=== PATIENT | male | born 1955 | race Caucasian/White ===

== ENCOUNTER 2017-10-07 19:25 | Outpatient (REF) | payer MEDICARE, SELFPAY ==
[2017-10-07 21:43] LABS: FREE T4 0.89 ng/dL (0.76-1.46); TSH 3.71 uIU/mL (0.358-3.74)
[2017-10-08 16:38] LABS: T3, Total 138 ng/dl (97-169)
== END 2017-10-07 19:26 ==
LOC: NCHCN 19:25
PROVIDERS: PCP Nurse Practitioner Family; Visit Provider Physician Assistant Medical
DX: E03.9 Hypothyroidism, unspecified (principal)
CPT/HCPCS: 84439; 84443; 84480

== ENCOUNTER 2017-11-12 15:28 | Outpatient (REF) | payer MEDICARE, SELFPAY ==
[2017-11-12 21:03] LABS: TSH (W/Ref FT4) 2.31 uIU/mL (0.358-3.74)
== END 2017-11-12 15:48 ==
LOC: NCHCN 15:28
PROVIDERS: PCP Nurse Practitioner Family; Referring Provider Physician Assistant Medical; Visit Provider Physician Assistant Medical
DX: E03.9 Hypothyroidism, unspecified (principal)
CPT/HCPCS: 84443

== ENCOUNTER 2018-03-02 09:35 | Outpatient (REF) | payer MEDICARE, SELFPAY ==
--- NOTE | 2018-03-02 08:56 | SKI_PTH ---
PATIENT: Nolberto House LOC: [facility] U#:[id number] AGE/SX: 62/M ROOM: RE03/02/[address]: Tyrone Michael : 1955 BED: DIS: 03/02/2018 SPEC #: [id number] RECD: 03/04/18 12:26 STATUS: MARILU RELesley #: [id number] ALLYSSA: 03/02/18 08:[address]: Tyrone Michael DEPT: Surgical Specimen RECD BY: Dena Hagen ENTERED: 03/04/18 12:26 SP TYPE: TONIO GALEAS DR: Stephanie Lopez Tissues: 1 - SKIN BIOPSY(SHAVE/PUNCH) Procedures: SPECIAL STAIN 2 SKIN LEVEL 4 Comments: [id number]
== END 2018-03-02 09:55 ==
LOC: NCHCN 09:35
PROVIDERS: PCP Nurse Practitioner Family; Visit Provider Specialist/Technologist Athletic Trainer
DX: L93.2 Other local lupus erythematosus (principal)
CPT/HCPCS: 88305; 88313

== ENCOUNTER 2018-03-12 22:34 | Outpatient (REF) | payer MEDICARE, SELFPAY ==
[2018-03-12 23:38] LABS: ESR 6 MM/HR (1-20)
[2018-03-14 15:07] LABS: Myeloperoxidase Ab IgG <0.2 U; Proteinase 3 Ab (PR3) <0.2 U
[2018-03-16 10:06] LABS: Cyclic Citrullinated Peptide <2.5 U/mL (<5.0)
[2018-03-16 10:47] LABS: Rheumatoid Factor <8 IU/mL (<12.5)
[2018-03-16 11:16] LABS: Lyme Ab w Rflx to Lyme Confirm Negative
[2018-03-16 14:11] LABS: ANA Interpretation Positive (NEGAT); ANA Titer Pattern 1:160 Speckled
[2018-03-16 21:38] LABS: Anaplasma phagocytophilum Negative (Negative); B. miyamotoi PCR Negative (Negative); Babesia divergens/MO-1 Negative (Negative); Babesia duncani Negative (Negative); Babesia microti Negative (Negative); Ehrlichia chaffeensis Negative (Negative); Ehrlichia ewingii/canis Negative (Negative); Ehrlichia muris eauclairensis Negative (Negative)
== END 2018-03-12 22:54 ==
LOC: NCHCN 22:34
PROVIDERS: PCP Nurse Practitioner Family; Visit Provider Specialist/Technologist Athletic Trainer
DX: M25.50 Pain in unspecified joint (principal); Z82.61 Family history of arthritis
CPT/HCPCS: 85652; 86200; 83516; 86038; 86140; 86431; 86618; 87798

== ENCOUNTER → 2018-04-01 08:02 | Outpatient (BNVA) | payer MEDICARE, SELFPAY | PROVIDERS: PCP Nurse Practitioner Family; Referring Provider Physician Assistant Medical; Visit Provider Psychiatry & Neurology Neurology | DX: G56.03 Carpal tunnel syndrome, bilateral upper limbs (principal); G56.23 Lesion of ulnar nerve, bilateral upper limbs | CPT/HCPCS: 95911; 99214 ==

== ENCOUNTER 2018-05-11 01:16 | Outpatient (CLI) | payer MEDICARE, SELFPAY ==
--- NOTE | 2018-05-11 08:40 | DI.MRI_ITS ---
SYMPTOM/DIAGNOSIS: ATYPICAL HEADACHE, R51 BRAIN MRI: Comparison is made with 01/31/10. T 2 sagittal, T 1, T 2, FLAIR, diffusion and gradient echo axial sequences were performed. No intracranial hemorrhage, mass or infarct is seen. The ventricles are normal in size. There are a few tiny scattered areas of high signal in the white matter, likely reflecting small vessel disease. The vascular flow voids appear intact. The sinuses and mastoid air cells appear clear. The orbits and pituitary are unremarkable. IMPRESSION: Minimal white matter changes likely reflecting small vessel disease. No acute abnormality.
== END 2018-05-11 01:36 ==
PROVIDERS: PCP Physician Assistant Medical; Visit Provider Specialist/Technologist Athletic Trainer
DX: R51 Headache (principal); R90.82 White matter disease, unspecified
CPT/HCPCS: 70551

== ENCOUNTER 2018-06-08 02:30 | Outpatient (CLI) | payer MEDICARE, SELFPAY ==
--- NOTE | 2018-06-08 | PFT_ITS ---
PULMONARY FUNCTION TEST REPORT Patient - Nolberto House 55 DATE OF SERVICE June 08, 2018 REQUESTING PROVIDER Darlene Miranda-PEYMAN Dunbar INTERPRETATION OF STUDY Spirometry shows no evidence of obstructive airways disease. No bronchodilator response. LUNG VOLUMES - Lung volumes show no evidence of restriction. DIFFUSION CAPACITY- Elevated. AIRWAY RESISTANCE - Normal. IMPRESSION No evidence of obstructive or restrictive lung disease. However, isolated elevated diffusion capacity can be seen in asthma. Therefore if the diagnosis of asthma is in question proceeding with Methacholine challenge testing may prove to be useful. Clinical correlation recommended. Tran Lagos M.D. Danae DD 06/10/2018 DT 06/11/2018
[2018-06-08] MEDS: Inhaler, Assist Device 1 EACH MC (08:54)
[2018-06-08] MEDS: Albuterol HFA 18 GM 200 PUFF INH IH (08:54)
== END 2018-06-08 02:50 ==
PROVIDERS: PCP Physician Assistant Medical; Visit Provider Physician Assistant Medical
DX: R06.09 Other forms of dyspnea (principal); F17.210 Nicotine dependence, cigarettes, uncomplicated
CPT/HCPCS: 94060; 94150; 94726; 94729

== ENCOUNTER → 2018-07-02 08:53 | Outpatient (BNVA) | payer MEDICARE, SELFPAY | PROVIDERS: PCP Physician Assistant Medical; Referring Provider Physician Assistant Medical; Visit Provider Physical Therapy Assistant | DX: Z12.11 Encounter for screening for malignant neoplasm of colon (principal); Z86.010 Personal history of colon polyps; K21.9 Gastro-esophageal reflux disease without esophagitis | CPT/HCPCS: 99214 ==

== ENCOUNTER 2018-07-24 06:08 | Day surgery (SDC) | payer MEDICARE, SELFPAY ==
[2018-07-24 06:25] VITALS: BP 136/88; PULSE 61; RESP 19; TEMP 35.9; O2SAT 97
[2018-07-24] MEDS: Lactated Ringers 1,000 ML 80 ML IV (06:53)
--- NOTE | 2018-07-24 07:35 | STOM_PTH ---
PATIENT: Nolberto House LOC: [facility] U#:[id number] AGE/SX: 62/M ROOM: RE07/24/[address]: Amber Black : 1955 BED: DIS: 07/24/2018 SPEC #: [id number] RECD: 07/24/18 12:43 STATUS: MARILU RE #: [id number] ALLYSSA: 07/24/18 07:[address]: Amber Black DEPT: Surgical Specimen RECD BY: Dena Hagen ENTERED: 07/24/18 12:45 SP TYPE: STOMACH OTHR DR: Darlene Dunbar Tissues: 1 - BIOPSY BOWEL 2 - STOMACH BIOPSY 3 - STOMACH BIOPSY 4 - ESOPHAGUS BIOPSY 5 - ESOPHAGUS BIOPSY 6 - BIOPSY BOWEL Procedures: GROSS AND MICRO LEVEL 4 IMMUNOPEROXIDASE STAIN Comments: [id number]
--- NOTE | 2018-07-24 08:14 | W.PM.DSUDISC ---
Discharge Plan Disposition Patient Disposition: HOME Condition: Good Discharge Details Reason For Visit: egd and CE Attending Provider: Amber Black Primary Care Provider: Darlene Dunbar Home Meds and New Rx's Prescriptions: New sucralfate [Carafate] 1 gram tablet 1 gm PO ONCE Qty: 30 RF: 12 Continued clotrimazole-betamethasone 1-0.05 % lotion 1 applic TP BID RF: 0 Flovent HFA 110 mcg/actuation HFA aerosol inhaler 1 puff IH BID RF: 0 diclofenac potassium 50 mg tablet 50 mg PO DAILY PRNRF: 0 omeprazole 40 mg capsule,delayed release(DR/EC) 40 mg PO DAILY RF: 0 albuterol sulfate [ProAir HFA] 8.5 GM HFA aerosol inhaler 2 puff Inhalation PRN PRNRF: 0 Discontinued polyethylene glycol 3350 17 gram/dose powder 238 g PO ONCE Qty: 238 RF: 0 bisacodyl [Dulcolax (bisacodyl)] 5 mg tablet,delayed release (DR/EC) 5 mg PO ONCE Qty: 4 RF: 0 Discharge Instructions Instructions: High Fiber Diet (GEN) Additional Instructions: Findings:gastritis/esophagitis sm polyp in colon Follow up: repeat 5-10 yrs depending on results of pathology -will send a letter in 2-3 wks w/ results of the polyp -take a carafate w/ the diclofenac Please call if you develop: fevers >101.5 Nausea or Vomiting Abdominal pain that is not transient DAY SURGERY UNIT POST COLONOSCOPY INSTRUCTIONS 1. Because there will be medication in your system for the next 24 hours, you may feel a little sleepy. Your coordination will be affected. Therefore: a. Do not drive or operate dangerous equipment for 24 hours. b. Do not drink alcohol beverages for 24 hours (not even beer). c. Plan to go home and rest for the day. 2. Generally there are no restrictions on your activity after a day or so has gone by, but you may feel a bit fatigued for a few days. 3 After you arrive home you may have a light meal and return to a normal diet as you can tolerate it without feeling sick to your stomach. 4. After surgery, you may feel pain or discomfort. This should be only transient, but if it persists please contact your doctor. 5. If there are any questions regarding the findings of your procedure, please feel free to contact your doctor. 6. If you are unable to contact your doctor with a problem, contact the hospital at [phone]. 7. Continue all your regular medications unless directed otherwise. I understand the above instructions and have no questions. Signature of Patient or Responsible Adult Escort Date/Time Name of Responsible Adult Escort Signature of Nurse Date/Time Activity:: no heavy lifting or strenuous activity x 24 hrs Diet:: sm lt meals Discharge Orders Discharge Orders: Discharge Order (Routine); Ordered 07/24/18 Ordered By: Amber Black DS: Diagnosis Discharge Diagnosis (1) GERD without esophagitis: Status: Acute (2) Colon polyp: Status: Acute (3) Gastritis: Status: Acute
--- NOTE | 2018-07-24 08:27 | ENDO_ITS ---
Date of service: 07/24/18 Time of Service: 08:23 Endoscopy Report DATE OF PROCEDURE: 07/24/18 PRE-OP DIAGNOSIS: non cardiac chest pain and CRC screen POST-OP DIAGNOSIS: other (gastritis/esophagitis/gerd and sm colon polyp ) PROCEDURE: EGD w/ bx and CE w/ polyp remover- cold biter SURGEON: Amber Black ANESTHESIA: GETA ESTIMATED BLOOD LOSS: 2 PATHOLOGY: other COMPLICATIONS: None DISPOSITION: PACU PREP: Miralax COLONOSCOPY RETRACTION TIME: 10 mins PROCEDURE DESCRIPTION: After informed consent was obtained the patient was take to the procedure room and placed in a supine position. Monitors were applied and a time out was done. The patients name, date of , procedure type, allergies to medications and metal in their body was reviewed. A bite block was placed and the patient was sedated. Once sedated and comfortable the gastroscope was advanced through the oropharynx which was grossly normal into the esophagus. The proximal and mid-esophagus were nl. In the distal esophagus there was mild irritation. The scope was advanced into the stomach and through the pylorus into the 3rd portion of the duodenum. The duodenum was noted to be nl. Biopsies were done . The scope was retracted back into the stomach and biopsies were done to rule out H. pylori. There were no ulcers/mild to moderate gastritis. no bile reflux. The scope was retroflexed. The cardia and fundus were noted to be normal. There no hiatal hernia noted. The scope was retracted back into the esophagus and biopsies were done of the GE junction to rule out Harrington's. The Z line was regular. The GE junction was at 39 cm. Scopes where than exchanged After informed consent was obtained the patient was taken to the procedure room and placed in a left decubitous position. Monitors were applied and a time out was done. The patients name, date of , procedure, allergies to medications and metal in their body was reviewed. The patient was then sedated. Once sedated and comfortable a rectal exam was done. External exam was normal. Internal exam revealed a normal sphincter tone and no palpable masses. The prostate not palpable . The scope was then introduced and retroflexed. no internal hemorrhoids were identified. The scope was then advanced to the cecum without difficulty. The TI and appendiceal orifice were identified. The prep was adequate. The scope was then slowly retracted over 10 minutes back into the rectum. Polyps were removed at 30cm/descending colon x2 w/ a cold biter. They were removed w/ a cold biter. All specimen was retrieved and no bleeding was noted. No diverticula or AVM's. The muscosa and vasculature that was visualized was nl in appearance. The scope was removed and the patient was woken up and taken back to Same day surgery in stable condition. The patient tolerated the procedure well and there were no immediate complications. Follow up: The patient should follow up in 5-10 yrs- path pd, unless they devel op changes in bowel habits or other new gastrointestinal complaints.
[2018-07-24 08:52] VITALS: BP 117/84; PULSE 54; RESP 16; TEMP 36.6; O2SAT 94
--- NOTE | 2018-07-24 09:21 | W.PM.DS.N ---
DS: Diagnosis Discharge Diagnosis (1) GERD without esophagitis: Status: Acute (2) Colon polyp: Status: Acute (3) Gastritis: Status: Acute Discharge Plan Disposition Patient Disposition: HOME Condition: Good Discharge Details Reason For Visit: egd and CE Attending Provider: Amber Black Primary Care Provider: Darlene Dunbar Home Meds and New Rx's Prescriptions: New sucralfate [Carafate] 1 gram tablet 1 gm PO ONCE Qty: 30 RF: 12 Chantix Starting Month Box 0.5 mg (11)- 1 mg (42) tablets,dose pack See Rx Instructions .ROUTE .COMPLEX Qty: 53 RF: 0 Continued clotrimazole-betamethasone 1-0.05 % lotion 1 applic TP BID RF: 0 Flovent HFA 110 mcg/actuation HFA aerosol inhaler 1 puff IH BID RF: 0 diclofenac potassium 50 mg tablet 50 mg PO DAILY PRNRF: 0 omeprazole 40 mg capsule,delayed release(DR/EC) 40 mg PO DAILY RF: 0 albuterol sulfate [ProAir HFA] 8.5 GM HFA aerosol inhaler 2 puff Inhalation PRN PRNRF: 0 Discontinued polyethylene glycol 3350 17 gram/dose powder 238 g PO ONCE Qty: 238 RF: 0 bisacodyl [Dulcolax (bisacodyl)] 5 mg tablet,delayed release (DR/EC) 5 mg PO ONCE Qty: 4 RF: 0 Discharge Instructions Instructions: High Fiber Diet (GEN) Additional Instructions: Findings:gastritis/esophagitis sm polyp in colon Follow up: repeat 5-10 yrs depending on results of pathology -will send a letter in 2-3 wks w/ results of the polyp -take a carafate w/ the diclofenac Please call if you develop: fevers >101.5 Nausea or Vomiting Abdominal pain that is not transient DAY SURGERY UNIT POST COLONOSCOPY INSTRUCTIONS 1. Because there will be medication in your system for the next 24 hours, you may feel a little sleepy. Your coordination will be affected. Therefore: a. Do not drive or operate dangerous equipment for 24 hours. b. Do not drink alcohol beverages for 24 hours (not even beer). c. Plan to go home and rest for the day. 2. Generally there are no restrictions on your activity after a day or so has gone by, but you may feel a bit fatigued for a few days. 3 After you arrive home you may have a light meal and return to a normal diet as you can tolerate it without feeling sick to your stomach. 4. After surgery, you may feel pain or discomfort. This should be only transient, but if it persists please contact your doctor. 5. If there are any questions regarding the findings of your procedure, please feel free to contact your doctor. 6. If you are unable to contact your doctor with a problem, contact the hospital at [phone]. 7. Continue all your regular medications unless directed otherwise. I understand the above instructions and have no questions. Signature of Patient or Responsible Adult Escort Date/Time Name of Responsible Adult Escort Signature of Nurse Date/Time Stand Alone Forms: Lopez Davila (DSU) Activity:: no heavy lifting or strenuous activity x 24 hrs Diet:: sm lt meals Discharge Orders Discharge Orders: Discharge Order (Routine); Ordered 07/24/18 Ordered By: Amber Black Discharge Data Discharge Date/Time-TO BE ENTERED AT DEPARTURE: 07/24/18 09:10 Discharge Comment: DC'D HOME WITH , STABLE. DS: Data Vitals/I&O Vitals and I&O: Vital Signs Temperature 36.6 C 07/24/18 08:52 Pulse 54 L 07/24/18 08:52 Pulse Rhythm Regular 07/24/18 06:25 Respiratory Rate 16 07/24/18 08:52 Respiratory Depth Normal 07/24/18 06:25 Blood Pressure 117/84 07/24/18 08:52 Pulse Oximetry 94 L 07/24/18 08:52 Oxygen Delivery Method Room Air 07/24/18 08:52 Oxygen Flow Rate 0 07/24/18 06:25 Pain Level 0 07/24/18 08:52 Intake & Output 07/23/18 07/23/18 07/24/18 11:59 23:59 11:59 Intake Total 808 / 808 Balance 808 / 808 Weight 122.6 kg Intake: IV 688 / 688 Oral 120 / 120 Other: Emesis Description None PFSH Medical History Gastritis (Acute) Colon polyp (Acute) GERD without esophagitis (Acute) SHARITA positive (Acute) Abdominal pain (Acute) Atypical cluster headache (Acute) Chest pain (Acute) Elevated lipase (Acute) Flank pain (Acute) History of lupus (Acute) Shortness of breath (Acute) Urinary hesitancy (Acute) Colitis (Chronic) Depression (Chronic) GERD (gastroesophageal reflux disease) (Chronic) Hypothyroidism (Chronic) Lumbar spinal stenosis (Chronic) Neuropathy (Chronic) KELLY (obstructive sleep apnea) (Chronic) Obesity (Chronic) Polyarthralgia (Chronic) Sleep apnea (Chronic) Syncope (Chronic) Tobacco use disorder (Chronic) Urinary incontinence (Chronic) Hyperplastic colonic polyp (Resolved) Surgical History History of ankle surgery (Acute) Hx of hand surgery (Acute) History of colonoscopy (Chronic) Social History Smoking/Tobacco Use Status: Current every day Tobacco Type: cigarettes Tobacco: How many years used: 48 Alcohol Intake: current Alcohol Intake frequency: holidays/special occasions only Alcohol type: beer Drug use: Occasionally Substance use type: marijuana Details: For restless leg syndrome Last use: 07/23/18 current occupation: Unable to work Do you feel safe at home: Yes Do you feel safe in your relationship?: Yes
== END 2018-07-24 09:10 | disposition home or self-care (01) ==
PROVIDERS: PCP Physician Assistant Medical; Visit Provider Surgery
PROC: (CPT 45380; principal; 2018-07-24 07:30)
DX: Z12.11 Encounter for screening for malignant neoplasm of colon (principal); D12.4 Benign neoplasm of descending colon; R10.9 Unspecified abdominal pain; K26.7 Chronic duodenal ulcer without hemorrhage or perforation; K31.89 Other diseases of stomach and duodenum; K29.50 Unspecified chronic gastritis without bleeding; K21.0 Gastro-esophageal reflux disease with esophagitis; R12 Heartburn; R14.0 Abdominal distension (gaseous); G47.33 Obstructive sleep apnea (adult) (pediatric)
CPT/HCPCS: 45380; 43239; 88305; NC; 88361

== ENCOUNTER 2018-12-03 11:45 | Emergency (ER) | payer MEDICARE, SELFPAY ==
[2018-12-03 11:50] VITALS: BP 139/86; PULSE 76; RESP 16; TEMP 36.4; O2SAT 97
--- NOTE | 2018-12-03 12:03 | DI.CT_ITS ---
EXAM: CT ABDOMEN PELVIS W ABD PELVIS WITH CONTRAST CLINICAL HISTORY: left lower abdominal pain. TECHNIQUE: Imaging Protocol: Axial computed tomography images with coronal and sagittal reformatted images were created and reviewed CONTRAST MATERIAL: Intravenous: Omnipaque 350 Contrast volume: 100 cc Contrast route:IV - Oral: no COMPARISON: ABD PELVIS WITH CONTRAST from 08/04/2009 FINDINGS: ABDOMEN: Lung Bases: Normal where visualized. Liver: Normal density. A cyst is noted in the left lobe of the liver. No suspicious mass. Gallbladder and biliary tract: No radiodense calculus or dilation. Pancreas: Normal density, no abnormal calcifications or inflammatory process. Spleen: Normal. Kidneys: Normal size, contour and axis. No radiodense stones or obstructive uropathy. No masses seen. Adrenal glands: No masses seen. Abdominal Aorta: Abdominal portion non-dilated. PELVIS: Bladder: No gross wall thickening, focal mass or stones. Bowel: No obstruction or bowel wall thickening. The appendix is normal in size without evidence of ad jacent mesenteric fat stranding or adjacent fluid collection. There is a normal quantity of stool. There is no evidence of diverticulitis. Peritoneal cavity: No ascites, focal collection or mesenteric inflammatory response. Bones: No suspicious lesions or fractures. Reproductive organs: Mildly enlarged prostate. Lymph nodes: Unremarkable. Impression: Unremarkable CT scan of the abdomen and pelvis. DATA REPOSITORY: All CT scans at this facility are submitted to the National Radiology Data Registry (NRDR) Dose Index Registry (DIR) with the [employer] (ACR). RADIATION OPTIMIZATION: All CT scans at this facility use at least one of these dose optimization te chniques: automated exposure control; mA and/or kV adjustment per patient size (includes targeted exa ms where dose is matched to clinical indication); or iterative reconstruction.
--- NOTE | 2018-12-03 12:05 | ED.GENADUL_ITS ---
Discharge Plan Disposition Patient Disposition: HOME Condition: Stable Discharge Details Chief Complaint: GI Bleed Clinical Impression: BRBPR (bright red blood per rectum) Primary Care Provider: Darlene Dunbar ED Provider: Edu Espana Home Meds and New Rx's Prescriptions: Continued clotrimazole-betamethasone 1-0.05 % lotion 1 applic TP BID RF: 0 Flovent HFA 110 mcg/actuation HFA aerosol inhaler 1 puff IH BID RF: 0 diclofenac potassium 50 mg tablet 50 mg PO DAILY PRNRF: 0 omeprazole 40 mg capsule,delayed release(DR/EC) 40 mg PO DAILY RF: 0 albuterol sulfate [ProAir HFA] 8.5 GM HFA aerosol inhaler 2 puff Inhalation PRN PRNRF: 0 sucralfate [Carafate] 1 gram tablet 1 gm PO ONCE Qty: 30 RF: 12 Chantix Starting Month Box 0.5 mg (11)- 1 mg (42) tablets,dose pack See Rx Instructions .ROUTE .COMPLEX Qty: 53 RF: 0 celecoxib [Celebrex] 50 mg Capsule 50 mg PO DAILY RF: 0 Discharge Instructions Instructions: Rectal Bleeding (ED) Additional Instructions: I have placed you on our follow up list to see general surgery within 1 week, you should be contacted with an appointment if you have chest pain, difficulty breathing, weakness or feel lightheaded, severe abdominal pain or bleeding that doesn't stop return to the emergency department Medical Decision Making 63 yo male comes in with chief complaint of blood in toilet after having painless bowel movement. States this happened once in the past about 7 years ago and was told it was due to a polyp. He has had some mild left lower abdominal pain for a few weeks, and has some mild tenderness without guarding in the llq. Has no pain on exam elsewhere, and on rectal exam has brown bloodless stool. will obtain lab work and imaging to further evaluate for the bleeding and llq pain pt's labs stable and ct imaging shows no acute findings .He has no recurrent bleeding here. Will d/c and have him f/u with general surgery talisha. Return precautions given Differential Diagnosis Differential Diagnosis: diverticulitis, polyp, hemorrhoids HPI General Mode of arrival: ambulatory . Date/Time Provider Initiated Documentation: 12/03/18 11:46 . Limitations to Documentation: no limitations . Information obtained by: patient . History of Present Illness 63 year old M presents to the emergency department with the chief complaint of blood in stool, described as moderate, Patient started experiencing this hour(s) (1) and it has been constant. No relieving factors improve symptom(s), No exacerbating factors reported . Patient did receive the following treatments prior to arrival, none Related Data Home Medications Medication Instructions Recorded Confirmed albuterol sulfate [ProAir HFA] 2 puff INHALATION PRN PRN 07/05/15 12/03/18 clotrimazole-betamethasone 1 1 applic TP BID 03/03/18 12/03/18 %-0.05 % lotion fluticasone propionate 110 1 puff IH BID 03/03/18 12/03/18 mcg/actuation HFA aerosol inhaler diclofenac potassium 50 mg tablet 50 mg PO DAILY PRN tab 07/02/18 12/03/18 omeprazole 40 mg capsule,delayed 40 mg PO DAILY 07/02/18 12/03/18 release Chantix Starting Month Box See Rx Instructions .ROUTE 07/24/18 12/03/18 .COMPLEX #53 dose pk sucralfate [Carafate] 1 gm PO ONCE #30 tab 07/24/18 12/03/18 celecoxib [Celebrex] 50 mg PO DAILY 12/03/18 12/03/18 Previous Rx's Medication Instructions Recorded Chantix Starting Month Box See Rx Instructions .ROUTE 07/24/18 .COMPLEX #53 dose pk sucralfate [Carafate] 1 gm PO ONCE #30 tab 07/24/18 Allergies Allergy/AdvReac Type Severity Reaction Status Date / Time grass pollen Allergy Unknown Verified 12/03/18 11:57 cedarwood AdvReac Mild difficulty Verified 12/03/18 11:57 breathing per Pt gabapentin AdvReac Mild first dose Verified 12/03/18 11:57 caused hallucination, then ok General Stated Complaint: GI Bleed JENNA: 3 Review of Systems Review of Systems ROS Unobtainable: All systems reviewed & are unremarkable except as noted in HPI and below Constitutional Constitutional: Denies chills, Denies fever(s) and Denies weakness ENT Ears, Nose, Mouth, and Throat: Denies change in voice Cardiovascular Cardiovascular: Denies chest pain and Denies dyspnea Respiratory Respiratory: Denies cough and Denies dyspnea Gastrointestinal Gastrointestinal: Denies nausea and Denies vomiting Musculoskeletal Musculoskeletal: Denies joint swelling Neurologic Neurologic: Denies weakness [facility] Medical History (Updated 08/12/18 @ 16:10 by Ursula Carnes RN) Abdominal pain (Acute) SHARITA positive (Acute) Pt. states he does not know what that is Atypical cluster headache (Acute) Chest pain (Acute) Stress test completed pt. states 3-4 monthes ago, came back clear. Colitis (Chronic) Colon polyp (Resolved) 07/24/18, [facility]toiber, [facility], Hyperplastic colo, repeat 10 yrs. mg Depression (Chronic) Elevated lipase (Acute) Flank pain (Acute) Gastritis (Acute) GERD (gastroesophageal reflux disease) (Chronic) GERD without esophagitis (Acute) History of lupus (Acute) Per Patient Hypothyroidism (Chronic) pt. states he is unsure of this Lumbar spinal stenosis (Chronic) Neuropathy (Chronic) Obesity (Chronic) KELLY (obstructive sleep apnea) (Chronic) Uses mouthpiece Polyarthralgia (Chronic) Shortness of breath (Acute) Sleep apnea (Chronic) Syncope (Chronic) Tobacco use disorder (Chronic) Urinary hesitancy (Acute) Urinary incontinence (Chronic) Surgical History (Updated 08/12/18 @ 16:10 by Ursula Carnes RN) History of ankle surgery (Acute) R Ankle Hx of hand surgery (Acute) R Hand Social History (Updated 07/02/18 @ 10:07 by PEYMAN Ahumada) Smoking/Tobacco Use Status: Current every day Tobacco Type: cigarettes Smoking packs per day: 0.5 Smoking cigarettes per day: 10.0 Tobacco: How many years used: 48 Alcohol Intake: current Alcohol Intake frequency: holidays/special occasions only Alcohol type: beer Drug use: Occasionally Substance use type: marijuana Details: For restless leg syndrome Last use: 07/23/18 current occupation: Unable to work Do you feel safe at home: Yes Do you feel safe in your relationship?: Yes Exam Const General: no acute distress Orientation: alert HENMT Head: normal to inspection Ears: external ears normal General nose exam: external nose normal Mouth: moist mucous membranes Eyes General: appearance normal, both eyes and all related structures Neck Neck: normal visual inspection Resp Effort & Inspection: normal respiratory effort and able to speak in complete sentences Cardio Rate: regular rate GI Palpation: soft Skin General skin exam: no rashes or lesions noted Neuro General: alert and oriented x3 Extrem General: normal to inspection Psych Mental Status: mental status grossly normal Course Vital Signs Vital signs: Vital Signs Temperature 36.4 C L 12/03/18 11:50 Pulse 76 12/03/18 11:50 Respiratory Rate 16 12/03/18 11:50 Blood Pressure 139/86 12/03/18 11:50 Pulse Oximetry 97 12/03/18 11:50 Temperature 36.4 C L 12/03/18 11:50 Temperature Source Skin 12/03/18 11:50 Pulse 76 12/03/18 11:50 Respiratory Rate 16 12/03/18 11:50 Respiratory Effort Non-Labored 12/03/18 11:50 Blood Pressure 139/86 12/03/18 11:50 Blood Pressure Position Sitting 12/03/18 11:50 Pulse Oximetry 97 12/03/18 11:50 Oxygen Delivery Method Room Air 12/03/18 11:50 Oxygen Flow Rate 0 12/03/18 11:50 Pain Level 2 12/03/18 11:50
[2018-12-03 12:13] VITALS: BP 101/76; BP 111/64; PULSE 67; PULSE 78
[2018-12-03] MEDS: Normal Saline Flush 10 ML SYR IVP (12:20)
[2018-12-03 12:25] LABS: Abs Immature Grans 0.01 k/cumm (0.0-0.09); Absolute Basophil Count 0.02 k/cumm (0.0-0.2); Absolute Eosinophil Count 0.07 k/cumm (0.0-0.7); Absolute Lymphocyte Count 1.35 k/cumm (1.2-3.4); Absolute Monocyte Count 0.45 k/cumm (0.11-0.7); Absolute Neutrophil Count 3.36 k/cumm (1.2-6.7); Basophils % 0.4; Eosinophils % 1.3; HCT 41.8 % (40.0-50.0); HGB 14.1 g/dL (13.5-17.5); Immature Grans % 0.2; Lymphocytes % 25.7; Mean Corp. HGB Concentration 33.7 g/dL (32.0-36.0); Mean Corpuscular Hemoglobin 30.9 pg (27.0-33.0); Mean Corpuscular Volume 91.5 fL (80-95); Mean Platelet Volume 9.8 fL (8.0-11.0); Monocytes % 8.6; Neutrophils % 63.8; Platelet Count 223 x1000/uL (130-400); RBC 4.57 m/cumm (4.50-6.00); RBC Distribution Width 14.4 % (11.8-14.1); White Blood Cell Count 5.26 k/cumm (4.4-10.8)
[2018-12-03 12:40] LABS: ALT 26 U/L (16-63); AST 18 U/L (15-37); Albumin 3.8 g/dL (3.4-5.0); Alkaline Phosphatase 88 U/L (46-116); Anion Gap 8.7 mmol/L (3-11); BUN 13 mg/dL (7-18); Bilirubin, Total 0.3 mg/dL (0.2-1.0); CO2 25.3 mmol/L (21.0-32.0); CREATININE 0.84 mg/dL (0.70-1.30); Calcium 8.2 mg/dL (8.5-10.1); Chloride 106 mmol/L (98-107); Glucose 91 mg/dL (70-100); Lipase 120 U/L (73-393); Magnesium 2.1 mg/dL (1.8-2.4); Potassium 4.2 mmol/L (3.5-5.1); Sodium 140 mmol/L (136-145); Total Protein 7.1 g/dL (6.4-8.2)
[2018-12-03 12:48] LABS: PTT Activated 25.5 sec (21.0-31.4); Prothrombin Time 10.4 sec (9.3-11.0)
[2018-12-03] MEDS: Omnipaque 350 MG/ML 100 ML BTL IJ (13:26)
[2018-12-03 14:23] VITALS: BP 139/86; PULSE 76; RESP 16; TEMP 36.4; O2SAT 97
--- NOTE | 2018-12-03 18:29 | NUR.NOTE ---
referral faxed to [facility] [phone].Nursing Note:
== END 2018-12-03 14:22 | disposition home or self-care (01) ==
PROVIDERS: Emergency Provider Emergency Medicine; PCP Physician Assistant Medical
DX: K62.5 Hemorrhage of anus and rectum (principal)
CPT/HCPCS: 36415; 80053; 83690; 99285; 74177; 83735; 85025; 85610; 85730; 99284; J3490

== ENCOUNTER → 2018-12-09 13:11 | Outpatient (BNVA) | payer MEDICARE, SELFPAY | PROVIDERS: PCP Physician Assistant Medical; Referring Provider Physician Assistant Medical; Visit Provider Surgery | DX: K62.5 Hemorrhage of anus and rectum (principal); K63.5 Polyp of colon; K29.70 Gastritis, unspecified, without bleeding | CPT/HCPCS: 99212 ==

== ENCOUNTER 2018-12-16 01:04 | Outpatient (CLI) | payer MEDICARE, SELFPAY ==
--- NOTE | 2018-12-16 06:54 | DI.US_ITS ---
EXAM: US ABDOMEN CLINICAL HISTORY: ruq pain and diarrhea,r19.7,R10.11 TECHNIQUE: Ultrasound performed using standard protocol. COMPARISON: RENAL ULTRASOUND(P) from 05/22/2016 CT ABDOMEN PELVIS W from 12/03/2018 FINDINGS: The aorta is of normal caliber. The inferior vena cava is unremarkable. The liver is normal in size . There is a 2.4 cm simple cyst in the left lobe of the liver. This was present on the CT scan from from 12/03/2018. No suspicious hepatic mass is seen. There is hepatopetal flow through the portal vein. There is a 0.9 cm echogenic, immobile nodule along the wall of the gallbladder. This likely r eflects a polyp. No gallstones, gallbladder wall thickening or pericholecystic fluid is present. Th ere is a negative sonographic Sutton's sign. The common duct is within normal limits at 4.1 mm. Lam creas is unremarkable as visualized. The spleen is unremarkable except for a single calcification. This may represent prior granulomatous disease. This was present on the CT scan. The kidneys are un remarkable. No free fluid is seen in the abdomen. IMPRESSION: 1. Echogenic focus in the gallbladder. This likely represents a gallbladder polyp. 2. No evidence of cholelithiasis or acute cholecystitis.
== END 2018-12-16 01:24 ==
PROVIDERS: PCP Physician Assistant Medical; Visit Provider Surgery
DX: R10.11 Right upper quadrant pain (principal); R19.7 Diarrhea, unspecified; K82.4 Cholesterolosis of gallbladder
CPT/HCPCS: 76700

== ENCOUNTER → 2019-01-25 10:55 | Outpatient (BNVA) | payer MEDICARE, SELFPAY | PROVIDERS: PCP Physician Assistant Medical; Referring Provider Physician Assistant Medical; Visit Provider Nurse Practitioner Gerontology | DX: N52.9 Male erectile dysfunction, unspecified (principal); N40.1 Benign prostatic hyperplasia with lower urinary tract symptoms; Z80.42 Family history of malignant neoplasm of prostate; R39.89 Other symptoms and signs involving the genitourinary system; F17.210 Nicotine dependence, cigarettes, uncomplicated | CPT/HCPCS: 81003; 99204; 99215 ==

== ENCOUNTER 2019-01-25 12:01 | Outpatient (CLI) | payer MEDICARE, SELFPAY ==
[2019-01-26 10:07] LABS: PSA, Screening 2.1 ng/mL (0.0-4.5)
== END 2019-01-25 12:21 ==
PROVIDERS: PCP Physician Assistant Medical; Visit Provider Nurse Practitioner Gerontology
DX: N40.1 Benign prostatic hyperplasia with lower urinary tract symptoms (principal); Z12.5 Encounter for screening for malignant neoplasm of prostate; Z80.42 Family history of malignant neoplasm of prostate; N52.9 Male erectile dysfunction, unspecified; R39.89 Other symptoms and signs involving the genitourinary system; F17.210 Nicotine dependence, cigarettes, uncomplicated
CPT/HCPCS: 36415; 81003; 84153; 99215

== ENCOUNTER → 2019-07-15 09:57 | Outpatient (BNVA) | payer MEDICARE, SELFPAY | PROVIDERS: PCP Physician Assistant Medical; Referring Provider Physician Assistant Medical; Visit Provider Nurse Practitioner Gerontology | DX: N40.1 Benign prostatic hyperplasia with lower urinary tract symptoms (principal); R39.89 Other symptoms and signs involving the genitourinary system; N52.9 Male erectile dysfunction, unspecified | CPT/HCPCS: 99214; 99443 ==

== ENCOUNTER 2019-07-19 12:38 | Outpatient (REF) | payer MEDICARE, SELFPAY ==
[2019-07-19 19:43] LABS: Anion Gap 7.8 mmol/L (3-11); BUN 14 mg/dL (7-18); CO2 26.2 mmol/L (21.0-32.0); CREATININE 0.88 mg/dL (0.70-1.30); Calcium 8.3 mg/dL (8.5-10.1); Chloride 104 mmol/L (98-107); Ferritin 235 ng/mL (26-388); Glucose 92 mg/dL (74-106); Potassium 4.6 mmol/L (3.5-5.1); Sodium 138 mmol/L (136-145)
== END 2019-07-19 12:58 ==
LOC: NCHCN 12:38
PROVIDERS: PCP Physician Assistant Medical; Visit Provider Physician Assistant Medical
DX: M25.50 Pain in unspecified joint (principal); G47.33 Obstructive sleep apnea (adult) (pediatric)
CPT/HCPCS: 80048; 82728

== ENCOUNTER 2019-10-05 02:34 | Outpatient (CLI) | payer MEDICARE, SELFPAY ==
[2019-10-05 07:42] LABS: Abs Immature Grans 0.02 10^3/uL (0.0-0.06); Absolute Basophil Count 0.04 10^3/uL (0.0-0.2); Absolute Eosinophil Count 0.15 10^3/uL (0.0-0.7); Absolute Lymphocyte Count 1.44 10^3/uL (1.2-3.4); Absolute Monocyte Count 0.45 10^3/uL (0.1-0.8); Absolute Neutrophil Count 3.22 10^3/uL (1.2-6.7); Basophils % 0.8; Eosinophils % 2.8; HCT 42.9 % (40.0-50.0); Immature Grans % 0.4; Lymphocytes % 27.1; MCH 30.6 pg (27.0-33.0); MCHC 32.6 % (32.0-36.0); MCV 93.7 fL (80-95); Monocytes % 8.5; Neutrophils % 60.4; Nucleated RBC 0 %; Platelet Count 208 10^3/uL (130-400); RBC 4.58 10^6/uL (4.36-5.78); RDW 13.8 % (11.8-14.1); RDW-SD 47.6 fL; WBC 5.32 10^3/uL (4.4-10.8)
[2019-10-05 08:17] LABS: Iron 108 ug/dL (65-175); Total Iron Binding Capacity 235 ug/dL (250-450); Transferrin Sat 46 % (20-55)
[2019-10-05 08:45] LABS: ALT 23 U/L (16-63); AST 16 U/L (15-37); Albumin 3.7 g/dL (3.4-5.0); Alkaline Phosphatase 86 U/L (46-116); Anion Gap 9.4 mmol/L (3-11); BUN 16 mg/dL (7-18); Bilirubin, Total 0.5 mg/dL (0.2-1.0); CO2 25.6 mmol/L (21.0-32.0); CREATININE 0.86 mg/dL (0.70-1.30); Calcium 8.5 mg/dL (8.5-10.1); Chloride 105 mmol/L (98-107); Ferritin 299 ng/mL (26-388); Folate 10.9 ng/mL (8.6-20.0); Glucose 91 mg/dL (74-106); Magnesium 2.1 mg/dL (1.8-2.4); Potassium 4.5 mmol/L (3.5-5.1); Sodium 140 mmol/L (136-145); TSH 3.88 uIU/mL (0.36-3.74); Total Protein 6.5 g/dL (6.4-8.2); Vitamin B12 451 pg/mL (193-986)
[2019-10-05 08:59] LABS: ESR 10 mm/hr (1-20)
[2019-10-05 09:08] LABS: Creatine Kinase 149 U/L (39-308)
[2019-10-05 17:07] LABS: Rheumatoid Factor <8.6 IU/mL (<12.0)
[2019-10-05 17:20] LABS: T3,Free 3.5 pg/mL (2.8-5.3)
[2019-10-06 10:13] LABS: Hepatitis C Ab w Rflx HCV PCR Negative (Negative)
[2019-10-06 15:05] LABS: ANA Interpretation Positive (Negative); ANA Titer Pattern 1:80 Speckled
== END 2019-10-05 02:54 ==
PROVIDERS: PCP Physician Assistant Medical; Visit Provider Physical Medicine & Rehabilitation
DX: E03.9 Hypothyroidism, unspecified (principal); R53.83 Other fatigue; E61.1 Iron deficiency; E55.9 Vitamin D deficiency, unspecified; M89.9 Disorder of bone, unspecified; M79.10 Myalgia, unspecified site; G47.9 Sleep disorder, unspecified
CPT/HCPCS: 36415; 80053; 82306; 82550; 85652; 86803; 82607; 82728; 82746; 83540; 83550; 83735; 84439; 84443; 84481; 85025; 86038; 86431

== ENCOUNTER 2020-12-06 12:20 | Outpatient (REF) | payer MEDICARE, SELFPAY ==
[2020-12-06 20:19] LABS: Abs Immature Grans 0.02 10^3/uL (0.0-0.06); Absolute Basophil Count 0.04 10^3/uL (0.0-0.2); Absolute Eosinophil Count 0.11 10^3/uL (0.0-0.7); Absolute Lymphocyte Count 1.07 10^3/uL (1.2-3.4); Absolute Monocyte Count 0.46 10^3/uL (0.1-0.8); Absolute Neutrophil Count 2.61 10^3/uL (1.2-6.7); Basophils % 0.9; Eosinophils % 2.6; HGB 14.7 g/dL (13.5-17.5); Immature Grans % 0.5; Lymphocytes % 24.8; MCH 30.4 pg (27.0-33.0); MCHC 32.7 % (32.0-36.0); MCV 93.2 fL (80-95); MPV 9.9 fL (8.0-11.0); Monocytes % 10.7; Neutrophils % 60.5; Nucleated RBC 0 %; Platelet Count 216 10^3/uL (130-400); RBC 4.83 10^6/uL (4.36-5.78); RDW 13.4 % (11.8-14.1); RDW-SD 46.2 fL; WBC 4.31 10^3/uL (4.4-10.8)
[2020-12-06 20:38] LABS: ALT 27 U/L (16-63); AST 17 U/L (15-37); Alkaline Phosphatase 86 U/L (46-116); Anion Gap 8.9 mmol/L (3-11); BUN 14 mg/dL (7-18); Bilirubin, Total 0.3 mg/dL (0.2-1.0); CO2 25.1 mmol/L (21.0-32.0); CREATININE 0.8 mg/dL (0.70-1.30); Calcium 8.8 mg/dL (8.5-10.1); Calculated LDL 153 mg/dL (<100); Chloride 105 mmol/L (98-107); Cholesterol 214 mg/dL (<200); Glucose 101 mg/dL (74-106); HDL Cholesterol 45 mg/dL (40-60); Potassium 4.4 mmol/L (3.5-5.1); Sodium 139 mmol/L (136-145); TSH (W/Ref FT4) 2.36 uIU/mL (0.36-3.74); Triglyceride 80 mg/dL (<150)
[2020-12-06 20:49] LABS: Hemoglobin A1C 5.6 % (<5.7)
[2020-12-07 00:44] LABS: Vitamin D 25 Total 24.8 ng/mL (30-100)
== END 2020-12-06 12:21 | disposition home or self-care (01) ==
LOC: NCHCN 12:20
PROVIDERS: PCP Physician Assistant Medical; Visit Provider Physician Assistant Medical
DX: G89.4 Chronic pain syndrome (principal); M25.59 Pain in other specified joint
CPT/HCPCS: 80053; 80061; 82306; 83036; 84443; 85025

== ENCOUNTER 2021-01-19 16:12 | Outpatient (REF) | payer MEDICARE, SELFPAY ==
[2021-01-21 17:23] LABS: COVID-19 RT-PCR UVMMC Result Negative (Negative)
== END 2021-01-19 16:13 | disposition home or self-care (01) ==
LOC: NCHCN 16:12
PROVIDERS: PCP Physician Assistant Medical; Visit Provider Nurse Practitioner Family
DX: Z20.822 Contact with and (suspected) exposure to COVID-19 (principal); J06.9 Acute upper respiratory infection, unspecified
CPT/HCPCS: U0003

== ENCOUNTER 2021-07-23 08:52 | Outpatient (REF) | payer MEDICARE, SELFPAY ==
[2021-07-23 16:07] LABS: Hemoglobin A1C 5.7 % (<5.7)
[2021-07-23 16:21] LABS: ALT 26 U/L (16-63); AST 12 U/L (15-37); Albumin 3.7 g/dL (3.4-5.0); Alkaline Phosphatase 92 U/L (46-116); Anion Gap 10.7 mmol/L (3-11); BUN 17 mg/dL (7-18); Bilirubin, Total 0.4 mg/dL (0.2-1.0); CO2 24.3 mmol/L (21.0-32.0); CREATININE 0.7 mg/dL (0.70-1.30); Calcium 8.1 mg/dL (8.5-10.1); Calculated LDL 126 mg/dL (<100); Chloride 106 mmol/L (98-107); Cholesterol 189 mg/dL (<200); Glucose 94 mg/dL (74-106); HDL Cholesterol 41 mg/dL (40-60); Potassium 4.6 mmol/L (3.5-5.1); Sodium 141 mmol/L (136-145); Total Protein 6.4 g/dL (6.4-8.2); Triglyceride 114 mg/dL (<150)
== END 2021-07-23 08:53 | disposition home or self-care (01) ==
LOC: NCHCN 08:52
PROVIDERS: PCP Physician Assistant Medical; Visit Provider Physician Assistant Medical
DX: E78.5 Hyperlipidemia, unspecified (principal); R79.89 Other specified abnormal findings of blood chemistry
CPT/HCPCS: 80053; 80061; 83036

== ENCOUNTER 2021-11-21 11:23 | Outpatient (REF) | payer MEDICARE, SELFPAY ==
[2021-11-21 15:42] LABS: Hemoglobin A1C 5.7 % (<5.7)
[2021-11-21 15:48] LABS: TSH (W/Ref FT4) 3.25 uIU/mL (0.36-3.74)
[2021-11-22 06:06] LABS: Vitamin D 25 Total 26.4 ng/mL (30-100)
== END 2021-11-21 11:24 | disposition home or self-care (01) ==
LOC: NCHCN 11:23
PROVIDERS: PCP Physician Assistant Medical; Visit Provider Physician Assistant Medical
DX: E55.9 Vitamin D deficiency, unspecified (principal); R53.83 Other fatigue
CPT/HCPCS: 82306; 83036; 83735; 84443

== ENCOUNTER 2022-06-28 11:17 | Outpatient (CLI) | payer MEDICARE, SELFPAY ==
--- NOTE | 2022-06-28 11:30 | DI.RAD_ITS ---
Exam(s) XR CHEST 2V PA LATERAL EXAM: XR CHEST 2V PA LATERAL CLINICAL HISTORY: CHEST CONGESTION, R09.89, ? PNEUMONIA OR FLUID WITHIN LUNGS TECHNIQUE: 2D digital imaging was performed. COMPARISON: CR LEFT SHOULDER COMPLETE from 01/16/2015 FINDINGS: HEART: Normal size. Aorta: Not dilated. PULMONARY VASCULATURE: Normal. LUNGS: Clear. PLEURAL SPACE: No pleural effusion or pneumothorax. BONE:Unremarkable for age. IMPRESSION: No acute abnormality. DATA REPOSITORY: RADIATION DOSE DELIVERED:
== END 2022-06-28 11:37 ==
LOC: DI 11:21
PROVIDERS: PCP Physician Assistant Medical; Visit Provider Physician Assistant Medical
DX: R09.89 Other specified symptoms and signs involving the circulatory and respiratory systems (principal)
CPT/HCPCS: 71046

== ENCOUNTER 2022-06-28 15:45 | Outpatient (REF) | payer MEDICARE, SELFPAY ==
[2022-06-28 13:43] LABS: Source Nasal/Nares
[2022-06-28 14:38] LABS: COVID-19 PCR Negative (Negative)
== END 2022-06-28 15:46 | disposition home or self-care (01) ==
LOC: LBN 15:45
PROVIDERS: PCP Physician Assistant Medical; Visit Provider Physician Assistant Medical
DX: R09.89 Other specified symptoms and signs involving the circulatory and respiratory systems (principal); Z20.822 Contact with and (suspected) exposure to COVID-19
CPT/HCPCS: 87635

== ENCOUNTER 2023-01-28 13:36 | Outpatient (REF) | payer MEDICARE, SELFPAY ==
--- OUTSIDE RECORDS SUMMARY | 2023-01-28 13:42 | XMS_ITS | Continuity of Care Document ---
Author Name Unknown Organization [facility] Address [address] [place] [id number] Care Team Providers Care Ssds Mk 2 Advanced Operator Name Role Phone KEN BIRCH PA-C Primary Care Physician Encounter [facility]_[place] FIN NBR [id number] Date(s): 04/15/22 - 04/15/[address] [address]- [place] Encounter Diagnosis Spinal stenosis, site unspecified(Final) - Discharge Disposition: Home or Self Care Attending Physician: KEN ARTIS PA-C Admitting Physician: KEN ARTIS PA-C Patient Care team information Care Team Personnel Name: KEN BIRCH PA-C Position: No Access Member Role: Primary Care Physician Address: Address: [id number] [place] [address] Care Team Related Persons Name: POLI KIM Address: Home
--- OUTSIDE RECORDS SUMMARY | 2023-01-28 13:42 | XMS_ITS | Continuity of Care Document ---
Author Name Unknown Organization [facility] Address [address] [place] [address] Care Team Providers Care President/[employer] & Live Experiences Name Role Phone KEN BIRCH PA-C Primary Care Physician ( [phone] Encounter [facility] FIN NBR [id number] Date(s): 01/21/23 - 01/21/23 [facility] [address] [place], [place] [phone]- [place] Encounter Diagnosis Hematochezia(Discharge Diagnosis) - 01/21/[address] scan(Discharge Diagnosis) - 01/21/23 Discharge Disposition: Home or Self Care Attending Physician: Fredy Cross MD Allergies, Adverse Reactions, Alerts Substance Reaction Severity Status Neurontin Moderate Active Assessment and Plan Future Appointments Functional Status 01/21/23 Other exposure to Infectious Disease Non e Medications albuterol 90 mcg/inh aerosol inhaler 1 puffs, Inhale, every 4 hr, PRN as needed for wheezing, # 8 g, 0 Refill(s) Start Date: 01/17/23 Status: Ordered ondansetron 4 mg oral tablet, disintegrating 4 mg = 1 tab, Oral, every 6 hr, PRN as needed for nausea/vomiting, # 16 tab, 0 Refill(s), Pharmacy:[id number], 177, cm, 01/08/23 9:00:00 EST, Height, 117.93, kg, 01/08/23 9:00:00 EST, Weight Dosing Start Date: 01/08/23 Status: Ordered Triamcinolone acetonide 0 Refill(s) Start Date: 01/17/23 Status: Ordered Problem List Condition Confirmation Course Effective Dates Status H ealth Status Informant Acute abdominal pain Confirmed Active Anxiety depression Confirmed Active Colitis Confirmed Active Lower abdominal cramping Confirmed Active Dysuria Confirmed Active Esophageal reflux Confirmed Active GERD (gastroesophageal reflux disease) Confirmed Active Hematochezia Confirmed Active Hypothyroidism Confirmed Active Lupus Confirmed Active Lyme disease Confirmed Active Nausea and vomiting Confirmed Active Noninfectious gastroenteritis Confirmed Active Occult blood in stools Confirmed Active KELLY - Obstructive sleep apnea Confirmed Active Osteoarthritis Confirmed Active Plantar fascial fibromatosis Confirmed Active Restless legs syndrome Confirmed Active Spinal stenosis Confirmed Active UI (urinary incontinence) Confirmed Active Procedures Procedure Date Related Diagnosis Body Site Status Ankle surgery bone spurs 02/15/13 Completed Thumb surgery Completed Vasectomy Completed Vital Signs Most recent to oldest [Reference Range]: 1 Temperature Temporal Artery [36-38 Deg C ] 36.5 Deg C (01/21/23 3:06 PM) Apical Heart Rate [60-100 bpm] 78 bpm (01/21/23 3:06 PM) Blood Pressure [90-140/60-90 mmHg] 120/8 4mmHg (01/21/23 3:06 PM) Mean Arterial Pressure, Cuff [70-110 mmH g] 96 mmHg (01/21/23 3:06 PM) Weight 117.93 kg (01/21/23 3:06 PM) Weight Measured (lbs) 259.991 lb (01/21/23 3:06 PM) Weight Dosing 117.930 kg (01/21/23 3:06 PM) [place] Body Weight Calculated 73 kg (01/21/23 3:06 PM) Height 177.80 cm (01/21/23 3:06 PM) Height/Length Measured (inches) 70 inch (01/21/23 3:06 PM) BSA Measured 2.41 m2 (01/21/23 3:06 PM) Body Mass Index 37.3 kg/m2 (01/21/23 3:06 PM) Social History Social History Type Response Tobacco Current everyday tob acco user Tobacco Use:. Sex Physician Outpatient Note * Fredy Cross MD: PERFORM Event Display: Office Clinic Note Physician Authored Date: [id number] PATRIA KIM :1955 Age:67 years Sex:Male Visit Date:01/21/2023 Primary Care Physician: KEN BIRCH PA-C Chief Complaint Rectal bleeding and abdominal pain History of Present Illness Initial visit for this 67-year-old??male patient??of??VICENTE Ellis??who was sent for??sudden onset??of??hematochezia??and abdominal pain. ?? Patient reports??approximate 1 year??of urgency for defecation generally in the morning??following his breakfast.?? Mccormick stool form of 3.?? Patient was awakened??in the middle of the night??on??01/08/2023??with??11/26 crampy lower abdominal pain??and urgency for defecation.?? Patient passed alarge amount of bright red blood??as well as stool.?? He went to the [facility] emergency room.?? His CBC was normal.?? CT scan with contrast??showed??mural thickening of the transverse??splenic flexure anddescending colon.?? Incidental findings include a 1.5 cm left hepatic cyst, right kidney cyst,??asymptomatic gallstones, and a small fat-containing umbilical hernia.?? Sodium was 133 with other electr olytes??within normal limits.?? Since that time??he has had??resolution of??bloody bowel movements??but continues to have mild lower abdominal pain??which is??2 on a 10 scale.?? He has no first-degree relatives with inflammatory bowel disease or colorectal cancer.?? His last colonoscopy was over 5 years ago at [facility].?? Patient was having difficulty with urination??prior to??onset of rectal bleeding.?? Since that time he has had??less difficulty with urination. Review of Systems Pertinent positives and negatives documented in the HPI. Physical Exam Vitals & Measurements T:??36.5?C ??(Temporal Artery)?? HR:??78??(Apical)?? BP:??120/84?? SpO2:??98%?? HT:??177.80??cm?? WT:??117.93??kg?? BMI:??37.3?? BSA:??2.41?? Obese white male in no acute distress Lungs: Clear to auscultation bilaterally Heart: Regular rhythm S1-S2 Abdomen: Normoactive bowel sounds, soft, mild lower abdominal tenderness without peritoneal signs, no mass??or organomegaly Assessment/Plan 1.??Hematochezia??K92.1 Colonoscopy to exclude colitis.?? Given??chronicity of symptoms??with rectal urgency,??question inflammatory bowel disease.?? Return to clinic 2 weeks post procedure. Ordered: Surgical Procedure Booking Request LTTL, 01/21/23 15:22:00 EST, 01/27/23 10:00:00 EST, LTTL Endoscopy, change in BM, blood, Hematochezia Abnormal CT scan, Outpatient, Colonoscopy, Primary Procedure, 30, General, 37, Fredy Cross MD, Consent to read: Colonoscopy [id number], [id number], 45... ?? 2.??Abnormal CT scan??R93.89 Ordered: Surgical Procedure Booking Request LTTL, 01/21/23 15:22:00 EST, 01/27/23 10:00:00 EST, LTTL Endoscopy, change in BM, blood, Hematochezia Abnormal CT scan, Outpatient, Colonoscopy, Primary Procedure, 30, General, 37, Fredy Cross MD, Consent to read: Colonoscopy [id number], [id number], 45... ?? Problem List/Past Medical History Ongoing Acute abdominal pain Anxiety depression Colitis Dysuria Esophageal reflux GERD (gastroesophageal reflux disease) Hematochezia Hypothyroidism Lower abdominal cramping Lupus Lyme disease Nausea and vomiting Noninfectious gastroenteritis Occult blood in stools KELLY - Obstructive sleep apnea Osteoarthritis Plantar fascial fibromatosis Restless legs syndrome Spinal stenosis Tobacco use UI (urinary incontinence) Historical No qualifying data Procedure/Surgical History ???Ankle surgery bone spurs (02/16/2013)???Thumb surgery???Vasectomy Medications albuterol 90 mcg/inh aerosol inhaler, 1 puffs, Inhale, every 4 hr, PRN ondansetron 4 mg oral tablet, disintegrating, 4 mg= 1 tab, Oral, every 6 hr, PRN Triamcinolone acetonide Allergies Neurontin Social History Alcohol Current, 1-2 times per month Electronic Cigarette/Vaping Electronic Cigarette Use: Never. Substance Use Current, Marijuana Tobacco Current everyday tobacco user Tobacco Use:. Family History Diabetes mellitus: Mother. Heart disease: Father. Lung cancer: Mother and Grandfather (M). Myocardial infarction: Father and Grandfather (P). Ovarian cancer: Mother. Rheumatoid arthritis: Father. Thyroid disorder: Mother. Family Member(s): ?? FATHER, at age: Unknown. Cause of : Family Member(s): ?? MOTHER, at age: Unknown. Cause of : Family Member(s): ?? GPARENT, at age: Unknown. Cause of : Family Member(s): ?? GPARENT, at age: Unknown. Cause of : Family Member(s): ?? GPARENT, at age: Unknown. Cause of : Family Member(s): ?? GPARENT, at age: Unknown. Cause of : Electronically Signed on 01/21/23 03:27 PM Fredy Cross MD Patient Care team information Care Team Personnel Name: KEN BIRCH PA-C Position: No Access Member Role: Primary Care Physician Address: Address: [address] [address]- Care Team Related Persons Name: POLI KIM
--- OUTSIDE RECORDS SUMMARY | 2023-01-28 13:42 | XMS_ITS | Continuity of Care Document ---
Author Name Unknown Organization [facility] Address [address] [place] [phone] Care Team Providers Care Veterinary Laboratory Diagnostician Name Role Phone KEN BIRCH PA-C Primary Care Physician Encounter [facility]_[place] FIN NBR [id number] Date(s): 05/03/22 - 05/03/22 [facility] [address], [place] [phone]- [place] Discharge Disposition: Home or Self Care Attending Physician: YOEL MCALLISTER Admitting Physician: YOEL MCALLISTER Referring Physician: YOEL MCALLISTER Results Radiology Reports * Exam Date Time Procedure Performing Provider Status 05/03/22 10:37 AM XR Spine Lumbosacral 4+ Views Ana Laura Mckay; Rosalba (Verified) Notes: (XR Spine Lumbosacral 4+ Views) Reason For Exam: lumbar spondylosis XR Spine Lumbosacral 4+ Views EXAM DESCRIPTION: XR Spine Lumbosacral 4+ Views 05/03/2022 INDICATION: LUMBAR SPONDYLOSIS TECHNIQUE: AP and lateral views of the lumbar spine including lateral views with voluntary flexion/extension, four views COMPARISON: MRI lumbar spine examination from 04/15/2022 IMPRESSION: No acute fracture. Mild retrolisthesis at L2-3. Lumbar lordosis is otherwise satisfactory. Mild levoscoliosis centered in the mid-upper lumbar region. Views with voluntary flexion/extension demonstrate no evidence of significant instability. Spondylotic changes in the mid-upper lumbar region with intervertebral disc space narrowing and mild endplate osteophyte formation. SI joints appear symmetric Regional vascular calcification. JOB #: [id number] Final Signed by: Osmany Mancia MD Signed (Electronic Signature): 05/03/2022 10:58 am XR Spine Lumbar and Sacrum GE 4 Views * Osmany Mancia MD: VERIFY, VERIFY Event Display: Report EXAM DESCRIPTION: XR Spine Lumbosacral 4+ Views 05/03/2022 INDICATION: LUMBAR SPONDYLOSIS TECHNIQUE: AP and lateral views of the lumbar spine including lateral views with voluntary flexion/extension, four views COMPARISON: MRI lumbar spine examination from 04/15/2022 IMPRESSION: No acute fracture. Mild retrolisthesis at L2-3. Lumbar lordosis is otherwise satisfactory. Mild levoscoliosis centered in the mid-upper lumbar region. Views with voluntary flexion/extension demonstrate no evidence of significant instability. Spondylotic changes in the mid-upper lumbar region with intervertebral disc space narrowing and mild endplate osteophyte formation. SI joints appear symmetric Regional vascular calcification. JOB #: [id number] Final Signed by: Osmany Mancia MD Signed (Electronic Signature): 05/03/2022 10:58 am Patient Care team information Care Team Personnel Name: KEN BIRCH PA-C Position: No Access Member Role: Primary Care Physician Address: Address: [address] [address]- Care Team Related Persons Name: POLI KIM Address: Home
--- OUTSIDE RECORDS SUMMARY | 2023-01-28 13:42 | XMS_ITS | Continuity of Care Document ---
Author Name Unknown Organization [facility] Address [address] [place] [id number] Care Team Providers Care Manager In Training Name Role Phone KEN BIRCH PA-C Primary Care Physician Encounter [facility]_[place] FIN NBR [id number] Date(s): 02/25/22 - 02/25/[address] [phone] [place] Discharge Disposition: Home or Self Care Attending Physician: Ken Dunbar Admitting Physician: Ken Dunbar Referring Physician: Ken Dunbar Results Radiology Reports * Exam Date Time Procedure Performing Provider Status 02/25/22 3:23 PM XR Hips 2 Views w/AP Pelvis Bilat Eve Miner; Rosalba (Verified) Notes: (XR Hips 2 Views w/AP Pelvis Bilat) Reason For Exam: HIP PAIN BILAT XR Hips 2 Views w/AP Pelvis Bilat EXAM DESCRIPTION: XR Hips 2 Views w/AP Pelvis Bilat 02/25/2022 INDICATION: HIP PAIN BILAT TECHNIQUE: Pelvis and bilateral hips, five views COMPARISON: None IMPRESSION: Examination is limited by patient body habitus No acute fracture or dislocation. SI joints appear symmetric and pubic symphysis appears intact. No significant hip arthritic changes. Hip joint spaces are relatively well maintained. No focal lytic or sclerotic lesion. JOB #: [id number] Final Signed by: Osmany Mancia MD Signed (Electronic Signature): 02/25/2022 3:59 pm XR Pelvis and Hip - bilateral Views * Osmany Mancia MD: VERIFY, VERIFY Event Display: Report EXAM DESCRIPTION: XR Hips 2 Views w/AP Pelvis Bilat 02/25/2022 INDICATION: HIP PAIN BILAT TECHNIQUE: Pelvis and bilateral hips, five views COMPARISON: None IMPRESSION: Examination is limited by patient body habitus No acute fracture or dislocation. SI joints appear symmetric and pubic symphysis appears intact. No significant hip arthritic changes. Hip joint spaces are relatively well maintained. No focal lytic or sclerotic lesion. JOB #: [id number] Final Signed by: Osmany Mancia MD Signed (Electronic Signature): 02/25/2022 3:59 pm Patient Care team information Personnel Name: KEN BIRCH PA-C Address: Address: [address] [address] [place]
--- OUTSIDE RECORDS SUMMARY | 2023-01-28 13:42 | XMS_ITS | Continuity of Care Document ---
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 Name Role Phone EYAL MAYORGA, KEN Ramirez Primary Care Physician Encounter LTTL_CT FIN [id number] [id number] Date(s): 01/08/23 - 01/08/23 [facility] [address] [place] [address]- [place] Encounter Diagnosis Colitis(Discharge Diagnosis) - 01/08/23 Discharge Disposition: Home or Self Care Attending Physician: Khurram Borrero MD Admitting Physician: Khurram Borrero MD Allergies, Adverse Reactions, Alerts No Known Medication Allergies Functional Status 01/08/23 Other exposure to Infectious Disease Non e Medications ondansetron 4 mg oral tablet, disintegrating 4 mg = 1 tab, Oral, every 6 hr, PRN as needed for nausea/vomiting, # 16 tab, 0 Refill(s), Pharmacy:[id number], 177, cm, 01/08/23 9:00:00 EST, Height, 117.93, kg, 01/08/23 9:00:00 EST, Weight Dosing Start Date: 01/08/23 Status: Ordered Mental Status 01/08/23 Eye Opening Response [place] Spontaneous ly Best Verbal Response Earline Oriented Best Motor Response [place] Obeys comman ds [place] Coma Score 15 Results Laboratory List Name Date Automated Diff 01/08/23 Urinalysis with Micro if Indicated and C ulture if Indicated 01/08/23 CBC w/ Diff 01/08/23 Comprehensive Metabolic Panel (CMP) 12/19 04/11 Lipase Level 01/08/23 Most recent to oldest [Reference Range]: 1 WBC [4.8-10.8 K/mcL] 9.6 K/mcL (01/08/23 8:50 AM) RBC [4.70-6.10 Million/mcL] 4.94 Million /mcL (01/08/23 8:50 AM) Neutro Auto [42.2-75.2 %] 79.9 % *HI* (01/08/23 8:50 AM) Lymph Auto [20.5-51.1 %] 12.8 % *LOW* (01/08/23 8:50 AM) [place] Auto [1.7-9.3 %] 6.0 % (01/08/23 8:50 AM) Basophil Auto [0.0-0.8 %] 0.5 % (01/08/23 8:50 AM) BUN [8-26 mg/dL] 15 mg/dL (01/08/23 8:50 AM) UA Color [Yellow] Yellow (01/08/23 9:14 AM) Glucose Level [74-106 mg/dL] 121 mg/dL *HI* (01/08/23 8:50 AM) Potassium Level [3.5-5.1 mmol/L] 4.5 mmo l/L (01/08/23 8:50 AM) Baso Absolute [0.0-0.2 K/mcL] 0.0 K/mcL (01/08/23 8:50 AM) MCV [80.0-94.0 fL] 93.3 fL (01/08/23 8:50 AM) UA Urobilinogen [0.2] 0.2 (01/08/23 9:14 AM) UA Bili [Negative] Negative (01/08/23 9:14 AM) UA Ketones [Negative] Negative (01/08/23 9:14 AM) AST [15-41 IntlUnit/L] 21 IntlUnit/L (01/08/23 8:50 AM) ALT [17-63 IntlUnit/L] 21 IntlUnit/L (01/08/23 8:50 AM) MCHC [32.0-37.0 g/dL] 32.8 g/dL (01/08/23 8:50 AM) Osmolality [275-295 mOsm/kg] 268 mOsm/kg *LOW* (01/08/23 8:50 AM) Sodium Level [134-143 mmol/L] 133 mmol/L *LOW* (01/08/23 8:50 AM) UA Leuk Est [Negative] Negative (01/08/23 9:14 AM) Lymph Absolute [1.2-3.4 K/mcL] 1.2 K/mcL (01/08/23 8:50 AM) UA Nitrite [Negative] Negative (01/08/23 9:14 AM) UA Glucose [Negative] Negative (01/08/23 9:14 AM) Hct [42.0-52.0 %] 46.1 % (01/08/23 8:50 AM) Lipase Level [18-51 unit/L] 38 unit/L 1 (01/08/23 8:50 AM) Calcium Level [8.9-10.3 mg/dL] 9.0 mg/dL (01/08/23 8:50 AM) [place] Absolute [0.1-0.6 K/mcL] 0.6 K/mcL (01/08/23 8:50 AM) Albumin Level [3.5-5.0 g/dL] 4.2 g/dL (01/08/23 8:50 AM) Protein Total [6.5-8.1 g/dL] 7.3 g/dL (01/08/23 8:50 AM) UA Protein [Negative] Negative (01/08/23 9:14 AM) MCH [27.0-31.0 pg] 30.6 pg (01/08/23 8:50 AM) Neutro Absolute [1.4-6.5 K/mcL] 7.7 K/mc L *HI* (01/08/23 8:50 AM) Bilirubin Total [0.2-1.2 mg/dL] 0.6 mg/d L (01/08/23 8:50 AM) Hgb [14.0-18.0 g/dL] 15.1 g/dL (01/08/23 8:50 AM) Alk Phos [38-130 IntlUnit/L] 73 IntlUnit /L (01/08/23 8:50 AM) UA Blood [Negative] Negative (01/08/23 9:14 AM) MPV [7.4-10.4 fL] 10.3 fL (01/08/23 8:50 AM) UA Spec Grav [1.001-1.030] 1.015 (01/08/23 9:14 AM) Platelets [130-400 K/mcL] 216 K/mcL (01/08/23 8:50 AM) CO2 [22-32 mmol/L] 23 mmol/L (01/08/23 8:50 AM) Eos Absolute [0.0-0.2 K/mcL] 0.0 K/mcL (01/08/23 8:50 AM) UA pH [5.00-9.00] 7.00 (01/08/23 9:14 AM) UA Appear [Clear] Clear (01/08/23 9:14 AM) Chloride Level [98-111 mmol/L] 105 mmol/ L (01/08/23 8:50 AM) RDW-CV [11.5-14.5 %] 13.7 % (01/08/23 8:50 AM) A/G Ratio [1.0-2.5 g/dL] 1.4 g/dL (01/08/23 8:50 AM) BUN/Creat Ratio [8.0-20.0] 22.1 *HI* (01/08/23 8:50 AM) Globulin [2.3-3.5 g/dL] 3.1 g/dL (01/08/23 8:50 AM) Imm Gran Absolute [0.00-0.02 K/mcL] 0.03 K/mcL *HI* (01/08/23 8:50 AM) Imm Gran Auto [0.0-0.5 %] 0.3 % (01/08/23 8:50 AM) Slide Review Not Indicated (01/08/23 8:50 AM) Urine Srce Clean Catch (01/08/23 9:14 AM) Creatinine Level [0.61-1.24 mg/dL] 0.68 mg/dL (01/08/23 8:50 AM) Anion Gap [3.0-12.0] 5.0 (01/08/23 8:50 AM) Eos, Auto [0.00-3.00 %] 0.50 % (01/08/23 8:50 AM) eGFR CKD-EPI [>=60 mL/min/1.73 m2] 102 m L/min/1.73 m2 (11/22/23 8:50 AM) 1Interpretive Data: L-azvfwm-v-benzoquinone imine (meabolite of Acetaminophen) will generate erroneously low lipase results in samples for patients that have taken toxic doses of acetaminophen. Radiology Reports * Exam Date Time Procedure Performing Provider Status 01/08/23 10:[address] Abdomen and Pelvi s w/ Contrast Amber Rueda; Auth (Verified) Notes: (CT Abdomen and Pelvis w/ Contrast) Reason For Exam: lower abdominal pain CT Abdomen and Pelvis w/ Contrast EXAM DESCRIPTION: CT Abdomen and Pelvis w/ Contrast 01/08/2023 INDICATION: LOWER ABDOMINAL PAIN TECHNIQUE: All CT scans at this facility use at least one of these dose optimization techniques: Automated exposure control; mA and/or kV adjustment per patient size (includes targeted exams where dose is matched to clinical indication); or iterative reconstruction. Technique: Axial CT images of the abdomen/pelvis with IV contrast administration 100 cc of Isovue-300 contrast was utilized COMPARISON: None FINDINGS: Ovoid fluid attenuation lesion in the posterior aspect of the left hepatic lobe consistent with cyst measuring 1.5 cm in diameter. No additional focal hepatic lesion. Normal enhancement of the main hepatic veins and main portal vein Normal spleen size without focal mass. Small calcified granuloma in the inferior aspect of the spleen Small dense filling defects in the gallbladder suspicious for small stones. No gallbladder inflammatory changes are noted Adrenal glands and pancreas appear within normal limits Small low-attenuation lesion involving the upper pole of the right kidney which is difficult to characterize based on size. This likely reflects small cyst. Otherwise no focal renal mass, hydronephrosis or perinephric fluid collection on either side Normal caliber abdominal aorta with scattered atherosclerotic calcifications No retroperitoneal adenopathy in the abdomen or pelvis. No bowel dilatation to suggest obstruction or ileus. Mild mural thickening involving the mid-distal transverse colon, splenic flexure and a majority of the descending colon. This may reflect underdistention artifact, but mild colitis cannot be excluded. Normal appendix. No free air or ascites. No mesenteric inflammatory stranding Tiny fat containing paraumbilical ventral abdominal hernia. Small ovoid fat attenuation lesion in the right anterior proximal thigh musculature most consistent with small intramuscular lipoma. Minimal subsegmental atelectasis or scarring in both lung bases. Visualized lung bases are otherwise clear No suspicious regional osseous lesions. Spondylotic changes in the visualized spinal axis. IMPRESSION: Nonobstructive bowel pattern. No free air. Normal appendix Mural thickening involving the mid-distal transverse colon, splenic flexure and a majority of the descending colon which may reflect underdistention artifact, but mild colitis cannot be excluded Small faintly calcified gallstones in the gallbladder are suspected. Additional nonacute findings as detailed above. JOB #: [id number] Final Signed by: Osmany Mancia MD Signed (Electronic Signature): 01/08/2023 10:11 am Vital Signs Most recent to oldest [Reference Range]: 1 2 Temperature Temporal Artery [36-38 Deg C ] 36.4 Deg C (01/08/23 8:32 AM) Peripheral Pulse Rate [60-100 bpm] 72 bp m (01/08/23 9:54 AM) 62 bpm (01/08/23 8:32 AM) Respiratory Rate [12-24 br/min] 18 br/mi n (01/08/23 9:54 AM) 18 br/min (01/08/23 8:32 AM) Blood Pressure [90-140/60-90 mmHg] 161/9 5mmHg *HI* (01/08/23 9:54 AM) 160/88mmHg *HI* (01/08/23 8:32 AM) Mean Arterial Pressure, Cuff [70-110 mmH g] 117 mmHg *HI* (01/08/23 9:54 AM) 112 mmHg *HI* (01/08/23 8:32 AM) Weight 117.93 kg (01/08/23 8:32 AM) Weight Dosing 117.93 kg (01/08/23 9:00 AM) Height 177.000 cm (01/08/23 9:00 AM) 177.000 cm (01/08/23 8:32 AM) Body Mass Index 38.000 kg/m2 (01/08/23 8:32 AM) Social History Social History Type Response Tobacco Current everyday tob acco user Tobacco Use:. Sex Hospital Discharge Instructions Patient Education 01/08/2023 09:55:16 Viral Gastroenteritis, Adult Viral Gastroenteritis, Adult Viral gastroenteritis is also known as the stomach flu. This condition may affect your stomach, small intestine, and large intestine. It can cause sudden watery diarrhea, fever, and vomiting. This condition is caused by many different viruses. These viruses can be passed from person to person very easily (are contagious). Diarrhea and vomiting can make you feel weak and cause you to become dehydrated. You may not be able to keep fluids down. Dehydration can make you tired and thirsty, cause you to have a dry mouth, and decrease how often you urinate. It is important to replace the fluids that you lose from diarrhea and vomiting. What are the causes? Gastroenteritis is caused by many viruses, including rotavirus and norovirus. Norovirus is the mostcommon cause in adults. You can get sick after being exposed to the viruses from other people. You can also get sick by: ??? Eating food, drinking water, or touching a surface contaminated with one of these viruses. ??? Sharing utensils or other personal items with an infected person. What increases the risk? You are more likely to develop this condition if you: ??? Have a weak body defense system (immune system). ??? Live with one or more children who are younger than 2 years. ??? Live in a senior care. ??? Travel on cruise ships. What are the signs or symptoms? Symptoms of this condition start suddenly 1???3 days after exposure to a virus. Symptoms may last for a few days or for as long as a week. Common symptoms include watery diarrhea and vomiting. Other symptoms include: ??? Fever. ??? Headache. ??? Fatigue. ??? Pain in the abdomen. ??? Chills. ??? Weakness. ??? Nausea. ??? Muscle aches. ??? Loss of appetite. How is this diagnosed? This condition is diagnosed with a medical history and physical exam. You may also have a stool test to check for viruses or other infections. How is this treated? This condition typically goes away on its own. The focus of treatment is to prevent dehydration andrestore lost fluids (rehydration). This condition may be treated with: ??? An oral rehydration solution (ORS) to replace important salts and minerals (electrolytes) in your body. Take this if told by your health care provider. This is a drink that is sold at pharmacies and retail stores. ??? Medicines to help with your symptoms. ??? Probiotic supplements to reduce symptoms of diarrhea. ??? Fluids given through an IV, if dehydration is severe. Older adults and people with other diseases or a weak immune system are at higher risk for dehydration. Follow these instructions at home: Eating and drinking ??? Take an ORS as told by your health care provider. ??? Drink clear fluids in small amounts as you are able. Clear fluids include: ??? Water. ??? Ice chips. ??? Diluted fruit juice. ??? Low-calorie sports drinks. ??? Drink enough fluid to keep your urine pale yellow. ??? Eat small amounts of healthy foods every 3???4 hours as you are able. This may include whole grains, fruits, vegetables, lean meats, and yogurt. ??? Avoid fluids that contain a lot of sugar or caffeine, such as energy drinks, sports drinks, andsoda. ??? Avoid spicy or fatty foods. ??? Avoid alcohol. General instructions ??? Wash your hands often, especially after having diarrhea or vomiting. If soap and water are not available, use hand clam grower. ??? Make sure that all people in your household wash their hands well and often. ??? Take bvgb-flt-cnfhufs and prescription medicines only as told by your health care provider. ??? Rest at home while you recover. ??? Watch your condition for any changes. ??? Take a warm bath to relieve any burning or pain from frequent diarrhea episodes. ??? Keep all follow-up visits. This is important. Contact a health care provider if you: ??? Cannot keep fluids down. ??? Have symptoms that get worse. ??? Have new symptoms. ??? Feel light-headed or dizzy. ??? Have muscle cramps. Get help right away if you: ??? Have chest pain. ??? Have trouble breathing or you are breathing very quickly. ??? Have a fast heartbeat. ??? Feel extremely weak or you faint. ??? Have a severe headache, a stiff neck, or both. ??? Have a rash. ??? Have severe pain, cramping, or bloating in your abdomen. ??? Have skin that feels cold and clammy. ??? Feel confused. ??? Have pain when you urinate. ??? Have signs of dehydration, such as: ??? Dark urine, very little urine, or no urine. ??? Cracked lips. ??? Dry mouth. ??? Sunken eyes. ??? Sleepiness. ??? Weakness. ??? Have signs of bleeding, such as: ??? Seeing blood in your vomit. ??? Having vomit that looks like coffee grounds. ??? Having bloody or black stools or stools that look like tar. These symptoms may be an emergency. Get help right away. Call 911. ??? Do not wait to see if the symptoms will go away. ??? Do not drive yourself to the hospital. Summary ??? Viral gastroenteritis is also known as the stomach flu. It can cause sudden watery diarrhea, fever, and vomiting. ??? This condition can be passed from person to person very easily (is contagious). ??? Take an oral rehydration solution (ORS) if told by your health care provider. This is a drink that is sold at pharmacies and retail stores. ??? Wash your hands often, especially after having diarrhea or vomiting. If soap and water are not available, use hand clam grower. This information is not intended to replace advice given to you by your health care provider. Make sure you discuss any questions you have with your health care provider. Document Revised: 12/03/2021 Document Reviewed: 12/03/2021 [employer] Patient Education ?? 2022 [employer]. 01/08/2023 09:55:07 Colitis Colitis Colitis is a condition in which the colon is inflamed. It can cause diarrhea, blood in the stool, and abdominal pain. Colitis can last a short time (be acute), or it may last a long time (become chronic). What are the causes? This condition may be caused by: ??? Infections from viruses or bacteria. ??? A reaction to medicine. ??? Certain autoimmune diseases, such as Crohn's disease or ulcerative colitis. ??? Radiation treatment. ??? Decreased blood flow to the bowel (ischemia). What are the signs or symptoms? Symptoms of this condition include: ??? Diarrhea, blood in the stool, or black, tarry stool. ??? Pain in the joints or abdominal pain. ??? Fever or fatigue. ??? Vomiting. ??? Weight loss. ??? Bloating. ??? Having fewer bowel movements than usual. ??? A strong and sudden urge to have a bowel movement. ??? Feeling like the bowel is not empty after a bowel movement. How is this diagnosed? This condition may be diagnosed based on a stool test and a blood test. You may also have other tests, such as: ??? X-rays. ??? CT scan. ??? Colonoscopy. ??? Endoscopy. ??? Biopsy. How is this treated? Treatment for this condition depends on the cause. This condition may be treated with: ??? Steps to rest the bowel, such as not eating or drinking for a period of time. ??? Fluids that are given through an IV. ??? Medicine for pain and diarrhea. ??? Antibiotic medicines. ??? Cortisone medicines. ??? Surgery. Follow these instructions at home: Eating and drinking ??? Follow instructions from your health care provider about eating or drinking restrictions. ??? Drink enough fluid to keep your urine pale yellow. ??? Work with a dietitian to determine whether certain foods cause your condition to flare up. ??? Avoid foods or drinks that cause flare-ups. ??? Eat a well-balanced diet. General instructions ??? If you were prescribed an antibiotic medicine, take it as told by your health care provider. Donot stop taking the antibiotic even if you start to feel better. ??? Take zque-rbn-ffdablv and prescription medicines only as told by your health care provider. ??? Keep all follow-up visits. This is important. Contact a health care provider if: ??? Your symptoms do not go away. ??? You develop new symptoms. Get help right away if: ??? You have a fever that does not go away with treatment. ??? You develop chills. ??? You have extreme weakness, fainting, or dehydration. ??? You vomit repeatedly. ??? You develop severe pain in your abdomen. ??? You pass bloody or tarry stool. Summary ??? Colitis is a condition in which the colon is inflamed. Colitis can last a short time (be acute), or it may last a long time (become chronic). ??? Treatment for this condition depends on the cause and may include resting the bowel, taking medicines, or having surgery. ??? If you were prescribed an antibiotic medicine, take it as told by your health care provider. Donot stop taking the antibiotic even if you start to feel better. ??? Get help right away if you develop severe pain in your abdomen. ??? Keep all follow-up visits. This is important. This information is not intended to replace advice given to you by your health care provider. Make sure you discuss any questions you have with your health care provider. Document Revised: 10/10/2020 Document Reviewed: 10/10/2020 [employer] Patient Education ?? 2022 [employer]. Follow Up Care 01/08/2023 08:32:14 With:Fredy Cross MD Address: [address] [place] [address]- When:1 week Comments:For consult for??rectal bleeding Emergency department Discharge instructions * Constantine Mcpherson MD: PERFORM Event Display: ED Discharge Information Authored Date: [id number] PATRIA KIM :1955 Age:67 years Sex:Male Visit Date:01/08/2023 Primary Care Physician: KEN BIRCH PA-C Discharge Instructions We would like to thank you for allowing us to assist you with your healthcare needs. The following includes patient education materials and information regarding your injury/illness. Diagnosis from Today's Visit Colitis Discharge Vitals Temperature??(Temporal Artery) 97.5 ??F (36.4 ??C) Heart Rate??(Peripheral) 72 Respiratory Rate?? 18 Blood Pressure?? 161/95?? Height?? 69.69 in (177.000 cm) Weight?? 260.04 lb (117.93 kg) BMI?? 38.000 Allergies No Known Medication Allergies What to Do Next Instructions from Your Care Team Rest. ??Stay hydrated. ??Zofran as prescribed for nausea and vomiting.?? Keep scheduled appointmentwith??regular doctor??3 days from now??to discuss referral for colonoscopy??or call Dr. Cross. ??Return to ED for increased bleeding lightheadedness dizziness or other problems You Need to Schedule the Following Appointments Follow Up with??Fredy Cross MD When:??Within 1 week Why: For consult for??rectal bleeding Where: [address] [place] [address]- You were treated today on an emergency basis; it may be ray to contact your primary care provider to notify them of your visit today. You may have been referred to your regular doctor or a specialist, please follow up as instructed. If your condition worsens or you can't get in to see the doctor, contact the Emergency Department. Medications What How Much When Instructions Next Dose New ondansetron (ondansetron 4 mg oral tablet, disintegrating) 1 tab Oral (given by mouth) Every 6 hours as needed for as needed for nausea/vomiting Pickup at [facility] Pharmacy Information [facility]: [address] [place], [place] [phone] Education Materials Viral Gastroenteritis, Adult Viral gastroenteritis is also known as the stomach flu. This condition may affect your stomach, small intestine, and large intestine. It can cause sudden watery diarrhea, fever, and vomiting. This condition is caused by many different viruses. These viruses can be passed from person to person very easily (are contagious). Diarrhea and vomiting can make you feel weak and cause you to become dehydrated. You may not be able to keep fluids down. Dehydration can make you tired and thirsty, cause you to have a dry mouth, and decrease how often you urinate. It is important to replace the fluids that you lose from diarrhea and vomiting. What are the causes? Gastroenteritis is caused by many viruses, including rotavirus and norovirus. Norovirus is the mostcommon cause in adults. You can get sick after being exposed to the viruses from other people. You can also get sick by: ? Eating food, drinking water, or touching a surface contaminated with one of these viruses. ? Sharing utensils or other personal items with an infected person. What increases the risk? You are more likely to develop this condition if you: ? Have a weak body defense system (immune system). ? Live with one or more children who are younger than 2 years. ? Live in a senior care. ? Travel on cruise ships. What are the signs or symptoms? Symptoms of this condition start suddenly 1???3 days after exposure to a virus. Symptoms may last for a few days or for as long as a week. Common symptoms include watery diarrhea and vomiting. Other symptoms include: ? Fever. ? Headache. ? Fatigue. ? Pain in the abdomen. ? Chills. ? Weakness. ? Nausea. ? Muscle aches. ? Loss of appetite. How is this diagnosed? This condition is diagnosed with a medical history and physical exam. You may also have a stool test to check for viruses or other infections. How is this treated? This condition typically goes away on its own. The focus of treatment is to prevent dehydration andrestore lost fluids (rehydration). This condition may be treated with: ? An oral rehydration solution (ORS) to replace important salts and minerals (electrolytes) in your body. Take this if told by your health care provider. This is a drink that is sold at pharmacies and retail stores. ? Medicines to help with your symptoms. ? Probiotic supplements to reduce symptoms of diarrhea. ? Fluids given through an IV, if dehydration is severe. Older adults and people with other diseases or a weak immune system are at higher risk for dehydration. Follow these instructions at home: Eating and drinking ? Take an ORS as told by your health care provider. ? Drink clear fluids in small amounts as you are able. Clear fluids include: ? Water. ? Ice chips. ? Diluted fruit juice. ? Low-calorie sports drinks. ? Drink enough fluid to keep your urine pale yellow. ? Eat small amounts of healthy foods every 3???4 hours as you are able. This may include whole grains, fruits, vegetables, lean meats, and yogurt. ? Avoid fluids that contain a lot of sugar or caffeine, such as energy drinks, sports drinks, and soda. ? Avoid spicy or fatty foods. ? Avoid alcohol. General instructions ? Wash your hands often, especially after having diarrhea or vomiting. If soap and water are not available, use hand clam grower. ? Make sure that all people in your household wash their hands well and often. ? Take tiga-ubn-yrwifwl and prescription medicines only as told by your health care provider. ? Rest at home while you recover. ? Watch your condition for any changes. ? Take a warm bath to relieve any burning or pain from frequent diarrhea episodes. ? Keep all follow-up visits. This is important. Contact a health care provider if you: ? Cannot keep fluids down. ? Have symptoms that get worse. ? Have new symptoms. ? Feel light-headed or dizzy. ? Have muscle cramps. Get help right away if you: ? Have chest pain. ? Have trouble breathing or you are breathing very quickly. ? Have a fast heartbeat. ? Feel extremely weak or you faint. ? Have a severe headache, a stiff neck, or both. ? Have a rash. ? Have severe pain, cramping, or bloating in your abdomen. ? Have skin that feels cold and clammy. ? Feel confused. ? Have pain when you urinate. ? Have signs of dehydration, such as: ? Dark urine, very little urine, or no urine. ? Cracked lips. ? Dry mouth. ? Sunken eyes. ? Sleepiness. ? Weakness. ? Have signs of bleeding, such as: ? Seeing blood in your vomit. ? Having vomit that looks like coffee grounds. ? Having bloody or black stools or stools that look like tar. These symptoms may be an emergency. Get help right away. Call 911. ? Do not wait to see if the symptoms will go away. ? Do not drive yourself to the hospital. Summary ? Viral gastroenteritis is also known as the stomach flu. It can cause sudden watery diarrhea, fever,and vomiting. ? This condition can be passed from person to person very easily (is contagious). ? Take an oral rehydration solution (ORS) if told by your health care provider. This is a drink that is sold at pharmacies and retail stores. ? Wash your hands often, especially after having diarrhea or vomiting. If soap and water are not available, use hand clam grower. This information is not intended to replace advice given to you by your health care provider. Make sure you discuss any questions you have with your health care provider. Document Revised: 12/03/2021 Document Reviewed: 12/03/2021 Elsevier Patient Education ?? 2022 [employer] Colitis Colitis is a condition in which the colon is inflamed. It can cause diarrhea, blood in the stool, and abdominal pain. Colitis can last a short time (be acute), or it may last a long time (become chronic). What are the causes? This condition may be caused by: ? Infections from viruses or bacteria. ? A reaction to medicine. ? Certain autoimmune diseases, such as Crohn's disease or ulcerative colitis. ? Radiation treatment. ? Decreased blood flow to the bowel (ischemia). What are the signs or symptoms? Symptoms of this condition include: ? Diarrhea, blood in the stool, or black, tarry stool. ? Pain in the joints or abdominal pain. ? Fever or fatigue. ? Vomiting. ? Weight loss. ? Bloating. ? Having fewer bowel movements than usual. ? A strong and sudden urge to have a bowel movement. ? Feeling like the bowel is not empty after a bowel movement. How is this diagnosed? This condition may be diagnosed based on a stool test and a blood test. You may also have other tests, such as: ? X-rays. ? CT scan. ? Colonoscopy. ? Endoscopy. ? Biopsy. How is this treated? Treatment for this condition depends on the cause. This condition may be treated with: ? Steps to rest the bowel, such as not eating or drinking for a period of time. ? Fluids that are given through an IV. ? Medicine for pain and diarrhea. ? Antibiotic medicines. ? Cortisone medicines. ? Surgery. Follow these instructions at home: Eating and drinking ? Follow instructions from your health care provider about eating or drinking restrictions. ? Drink enough fluid to keep your urine pale yellow. ? Work with a dietitian to determine whether certain foods cause your condition to flare up. ? Avoid foods or drinks that cause flare-ups. ? Eat a well-balanced diet. General instructions ? If you were prescribed an antibiotic medicine, take it as told by your health care provider. Do notstop taking the antibiotic even if you start to feel better. ? Take [id number]-oadloto and prescription medicines only as told by your health care provider. ? Keep all follow-up visits. This is important. Contact a health care provider if: ? Your symptoms do not go away. ? You develop new symptoms. Get help right away if: ? You have a fever that does not go away with treatment. ? You develop chills. ? You have extreme weakness, fainting, or dehydration. ? You vomit repeatedly. ? You develop severe pain in your abdomen. ? You pass bloody or tarry stool. Summary ? Colitis is a condition in which the colon is inflamed. Colitis can last a short time (be acute), l[place] may last a long time (become chronic). ? Treatment for this condition depends on the cause and may include resting the bowel, taking medicines, or having surgery. ? If you were prescribed an antibiotic medicine, take it as told by your health care provider. Do notstop taking the antibiotic even if you start to feel better. ? Get help right away if you develop severe pain in your abdomen. ? Keep all follow-up visits. This is important. This information is not intended to replace advice given to you by your health care provider. Make sure you discuss any questions you have with your health care provider. Document Revised: 10/10/2020 Document Reviewed: 10/10/2020 Elsevier Patient Education ?? 2022 [employer] Tests Performed Radiology CT Abdomen and Pelvis w/ Contrast 01/08/2023 10:13 EST Medications and Immunizations Administered Given Sodium Chloride 0.9%, 1000 mL, IV Bolus ondansetron, 4 mg, IV Push Lab Test Name Test Result Date/Time WBC 9.6 K/mcL 01/08/2023 08:50 EST RBC 4.94 Million/mcL 01/08/2023 08:50 EST Hgb 15.1 g/dL 01/08/2023 08:50 EST Hct 46.1 % 01/08/2023 08:50 EST MCV 93.3 fL 01/08/2023 08:50 EST MCH 30.6 pg 01/08/2023 08:50 EST MCHC 32.8 g/dL 01/08/2023 08:50 EST RDW-CV 13.7 % 01/08/2023 08:50 EST Platelets 216 K/mcL 01/08/2023 08:50 EST MPV 10.3 fL 01/08/2023 08:50 EST Neutro Auto 79.9 % 01/08/2023 08:50 EST Lymph Auto 12.8 % 01/08/2023 08:50 EST [place] Auto 6.0 % 01/08/2023 08:50 EST Eos, Auto 0.50 % 01/08/2023 08:50 EST Basophil Auto 0.5 % 01/08/2023 08:50 EST Imm Gran Auto 0.3 % 01/08/2023 08:50 EST Neutro Absolute 7.7 K/mcL 01/08/2023 08:50 EST Lymph Absolute 1.2 K/mcL 01/08/2023 08:50 EST [place] Absolute 0.6 K/mcL 01/08/2023 08:50 EST Eos Absolute 0.0 K/mcL 01/08/2023 08:50 EST Baso Absolute 0.0 K/mcL 01/08/2023 08:50 EST Imm Gran Absolute 0.03 K/mcL 01/08/2023 08:50 EST Slide Review Not Indicated 01/08/2023 08:50 EST Sodium Level 133 mmol/L 01/08/2023 08:50 EST Potassium Level 4.5 mmol/L 01/08/2023 08:50 EST Chloride Level 105 mmol/L 01/08/2023 08:50 EST CO2 23 mmol/L 01/08/2023 08:50 EST Alk Phos 73 IntlUnit/L 01/08/2023 08:50 EST AST 21 IntlUnit/L 01/08/2023 08:50 EST ALT 21 IntlUnit/L 01/08/2023 08:50 EST BUN 15 mg/dL 01/08/2023 08:50 EST Glucose Level 121 mg/dL 01/08/2023 08:50 EST Creatinine Level 0.68 mg/dL 01/08/2023 08:50 EST BUN/Creat Ratio 22.1 01/08/2023 08:50 EST eGFR CKD-EPI 102 mL/min/1.73 m2 01/08/2023 08:50 EST Calcium Level 9.0 mg/dL 01/08/2023 08:50 EST Protein Total 7.3 g/dL 01/08/2023 08:50 EST Albumin Level 4.2 g/dL 01/08/2023 08:50 EST Globulin 3.1 g/dL 01/08/2023 08:50 EST A/G Ratio 1.4 g/dL 01/08/2023 08:50 EST Bilirubin Total 0.6 mg/dL 01/08/2023 08:50 EST Anion Gap 5.0 01/08/2023 08:50 EST Lipase Level 38 unit/L 01/08/2023 08:50 EST Osmolality 268 mOsm/kg 01/08/2023 08:50 EST Urine Srce Clean Catch 01/08/2023 09:14 EST UA Color YELLOW. 01/08/2023 09:14 EST UA Appear CLEAR. 01/08/2023 09:14 EST UA Glucose NEGATIVE 01/08/2023 09:14 EST UA Bili NEGATIVE 01/08/2023 09:14 EST UA Ketones NEGATIVE 01/08/2023 09:14 EST UA Spec Grav 1.015 01/08/2023 09:14 EST UA Blood NEGATIVE 01/08/2023 09:14 EST UA pH 7.00 01/08/2023 09:14 EST UA Protein NEGATIVE 01/08/2023 09:14 EST UA Urobilinogen 0.2 01/08/2023 09:14 EST UA Nitrite NEGATIVE 01/08/2023 09:14 EST UA Leuk Est NEGATIVE 01/08/2023 09:14 EST Patient/Vessel Master Signature Patient Name:PATRIA KIM I have received this information and my questions have been answered. Patient/Vessel Master Name: Patient/Vessel Master Signature: Relationship to Patient: Witness Name/Signature: Date: Electronically Signed on: 01/08/2023 10:57 ESTSigned by:CONSTANTINO Patient Care team information Care Team Personnel Name: KEN BIRCH PA-C Position: No Access Member Role: Primary Care Physician Address: Address: [address] [id number] Name: Constantine Mcpherson MD Position: Physician Member Role: ED Physician Address: Address: [address] [place] [id number] Name: William Lamar Position: Nurse Member Role: ED Nurse Care Team Related Persons Name: POLI KIM
--- OUTSIDE RECORDS SUMMARY | 2023-01-28 13:42 | XMS_ITS | Continuity of Care Document ---
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 Role Phone EYAL MAYORGA, KEN Ramirez Primary Care Physician Encounter LTTL_HI FIN NBR [id number] Date(s): 01/27/23 - 01/27/23 [facility] [address] [place] [address]- [place] Encounter Diagnosis Hematochezia(Discharge Diagnosis) - 01/27/23 Lower abdominal pain(Discharge Diagnosis) - 01/27/[address] scan, colon(Discharge Diagnosis) - 01/27/23 Polyp of colon(Final) - First degree hemorrhoids(Final) - Melena(Final) - Nicotine dependence, cigarettes, uncomplicated(Final) - Discharge Disposition: Home f/u External Provider Attending Physician: Fredy Cross MD Admitting Physician: Fredy Cross MD Referring Physician: Fredy Cross MD Allergies, Adverse Reactions, Alerts No Known Medication Allergies Substance Reaction Severity Status Mold Congestion Severe Active Pollen Congestion Mild Active Assessment and Plan Future Appointments Functional Status 01/27/23 ADLs Independent 01/22/23 Living Situation Home independently Medications albuterol 90 mcg/inh aerosol inhaler 1 puffs, Inhale, every 4 hr, PRN as needed for wheezing, # 8 g, 0 Refill(s) Start Date: 01/17/23 Status: Ordered ondansetron 4 mg oral tablet, disintegrating 4 mg = 1 tab, Oral, every 6 hr, PRN as needed for nausea/vomiting, # 16 tab, 0 Refill(s), Pharmacy:[id number], 177, cm, 01/08/23 9:00:00 EST, Height, 117.93, kg, 01/08/23 9:00:00 EST, Weight Dosing Start Date: 01/08/23 Status: Ordered triamcinolone 0.1% topical cream APPLY A SMALL AMOUNT OF CREAM TOPICALLY TO THE AFFECTED AREA(S) TWICE A DAY NEEDED Start Date: 01/22/23 Status: Ordered Problem List Condition Confirmation Course Effective Dates Status H ealth Status Informant Acute abdominal pain Confirmed Active Anxiety depression Confirmed Active Colitis Confirmed Active Lower abdominal cramping Confirmed Active Dysuria Confirmed Active Esophageal reflux Confirmed Active GERD (gastroesophageal reflux disease) Confirmed Active Hematochezia Confirmed Active Hypothyroidism Confirmed Active Abnormal CT scan, colon Confirmed Active Lower abdominal pain Confirmed Active Lupus Confirmed Active Lyme disease Confirmed Active Nausea and vomiting Confirmed Active Noninfectious gastroenteritis Confirmed Active Occult blood in stools Confirmed Active KELLY - Obstructive sleep apnea Confirmed Active Osteoarthritis Confirmed Active Plantar fascial fibromatosis Confirmed Active Restless legs syndrome Confirmed Active Spinal stenosis Confirmed Active UI (urinary incontinence) Confirmed Active Procedures Procedure Date Related Diagnosis Body Site Status Colonoscopy Biopsy 1 01/27/23 Comp leted Ankle surgery bone spurs 02/15/13 Completed Colonoscopy Completed Thumb surgery Completed Vasectomy Completed 1auto-populated from documented surgical case Vital Signs Most recent to oldest [Reference Range]: 1 2 3 Temperature Temporal Artery [36-38 Deg C] 37.2 Deg C (01/27/23 12:00 PM) 36.5 Deg C (01/27/23 11:02 AM) Temperature Temporal Artery (DegF) [97.3-100 Deg F] 98.96 Deg F (01/27/23 12:00 PM) Peripheral Pulse Rate [60-100 bpm] 59 bpm *LOW* (01/27/23 12:16 PM) 60 bpm (01/27/23 12:15 PM) 60 bpm (01/27/23 12:00 PM) Heart Rate Monitored [60-100 bpm] 66 bpm (01/27/23 12:00 PM) 65 bpm (01/27/23 11:02 AM) Respiratory Rate [12-24 br/min] 16 br/min (01/27/23 12:00 PM) 16 br/min (01/27/23 11:02 AM) Blood Pressure [90-140/60-90 mmHg] 121/81mmHg (01/27/23 12:16 PM) 107/75mmHg (01/27/23 12:00 PM) 124/94mmHg (01/27/23 11:02 AM) Mean Arterial Pressure, Cuff [70-110 mmHg] 94 mmHg (01/27/23 12:16 PM) 86 mmHg (01/27/23 12:00 PM) Mean Arterial Pressure Cuff 95 mmHg (01/27/23 12:16 PM) 85 mmHg (01/27/23 12:00 PM) Weight 117.93 kg (01/22/23 12:06 PM) Weight Dosing 117.930 kg (01/22/23 12:06 PM) Height 177.80 cm (01/22/23 12:06 PM) Social History Social History Type Response Tobacco Current everyday tob acco user Tobacco Use:. Sex Hospital Discharge Instructions Patient Education 01/27/2023 11:09:33 High-Fiber Eating Plan High-Fiber Eating Plan Fiber, also called dietary fiber, is a type of carbohydrate. It is found foods such as fruits, vegetables, whole grains, and beans. A high-fiber diet can have many health benefits. Your health care provider may recommend a high-fiber diet to help: ??? Prevent constipation. Fiber can make your bowel movements more regular. ??? Lower your cholesterol. ??? Relieve the following conditions: ??? Inflammation of veins in the anus (hemorrhoids). ??? Inflammation of specific areas of the digestive tract (uncomplicated diverticulosis). ??? A problem of the large intestine, also called the colon, that sometimes causes pain and diarrhea (irritable bowel syndrome, or IBS). ??? Prevent overeating as part of a weight-loss plan. ??? Prevent heart disease, type 2 diabetes, and certain cancers. What are tips for following this plan? Reading food labels ??? Check the nutrition facts label on food products for the amount of dietary fiber. Choose foods that have 5 grams of fiber or more per serving. ??? The goals for recommended daily fiber intake include: ??? Men (age 50 or younger): 34???38 g. ??? Men (over age 50): 28???34 g. ??? Women (age 50 or younger): 25???28 g. ??? Women (over age 50): 22???25 g. Your daily fiber goal is g. Shopping ??? Choose whole fruits and vegetables instead of processed forms, such as apple juice or applesauce. ??? Choose a wide variety of high-fiber foods such as avocados, lentils, oats, and kidney beans. ??? Read the nutrition facts label of the foods you choose. Be aware of foods with added fiber. These foods often have high sugar and sodium amounts per serving. Cooking ??? Use whole-grain flour for baking and cooking. ??? Cook with brown rice instead of white rice. Meal planning ??? Start the day with a breakfast that is high in fiber, such as a cereal that contains 5 g of fiber or more per serving. ??? Eat breads and cereals that are made with whole-grain flour instead of refined flour or white flour. ??? Eat brown rice, bulgur wheat, or millet instead of white rice. ??? Use beans in place of meat in soups, salads, and pasta dishes. ??? Be sure that half of the grains you eat each day are whole grains. General information ??? You can get the recommended daily intake of dietary fiber by: ??? Eating a variety of fruits, vegetables, grains, nuts, and beans. ??? Taking a fiber supplement if you are not able to take in enough fiber in your diet. It is better to get fiber through food than from a supplement. ??? Gradually increase how much fiber you consume. If you increase your intake of dietary fiber tooquickly, you may have bloating, cramping, or gas. ??? Drink plenty of water to help you digest fiber. ??? Choose high-fiber snacks, such as berries, raw vegetables, nuts, and popcorn. What foods should I eat? Fruits Berries. Pears. Apples. Oranges. Avocado. Prunes and raisins. Dried figs. Vegetables Sweet potatoes. Spinach. Kale. Artichokes. Cabbage. Broccoli. Cauliflower. Green peas. Carrots. Squash. Grains Whole-grain breads. Multigrain cereal. Oats and oatmeal. Brown rice. Barley. Bulgur wheat. Millet. Quinoa. Bran muffins. Popcorn. Wayside wafer crackers. Meats and other proteins [place] beans, kidney beans, and saucedo beans. Soybeans. Split peas. Lentils. Nuts and seeds. Dairy Fiber-fortified yogurt. Beverages Fiber-fortified soy milk. Fiber-fortified orange juice. Other foods Fiber bars. The items listed above may not be a complete list of recommended foods and beverages. Contact a dietitian for more information. What foods should I avoid? Fruits Fruit juice. Cooked, strained fruit. Vegetables Fried potatoes. Canned vegetables. Well-cooked vegetables. Grains White bread. Pasta made with refined flour. White rice. Meats and other proteins Fatty cuts of meat. Fried chicken or fried fish. Dairy Milk. Yogurt. Cream cheese. Sour cream. Fats and oils Whitefish. Beverages Soft drinks. Other foods Cakes and pastries. The items listed above may not be a complete list of foods and beverages to avoid. Talk with your dietitian about what choices are best for you. Summary ??? Fiber is a type of carbohydrate. It is found in foods such as fruits, vegetables, whole grains,and beans. ??? A high-fiber diet has many benefits. It can help to prevent constipation, lower blood cholesterol, aid weight loss, and reduce your risk of heart disease, diabetes, and certain cancers. ??? Increase your intake of fiber gradually. Increasing fiber too quickly may cause cramping, bloating, and gas. Drink plenty of water while you increase the amount of fiber you consume. ??? The best sources of fiber include whole fruits and vegetables, whole grains, nuts, seeds, and beans. This information is not intended to replace advice given to you by your health care provider. Make sure you discuss any questions you have with your health care provider. Document Revised: 06/08/2020 Document Reviewed: 06/08/2020 [facility] Patient Education ?? 2022 [employer]. 01/27/2023 11:09:29 Hemorrhoids Hemorrhoids Hemorrhoids are swollen veins in and around the rectum or anus. There are two types of hemorrhoids: ??? Internal hemorrhoids. These occur in the veins that are just inside the rectum. They may poke through to the outside and become irritated and painful. ??? External hemorrhoids. These occur in the veins that are outside the anus and can be felt as a painful swelling or hard lump near the anus. Most hemorrhoids do not cause serious problems, and they can be managed with home treatments such as diet and lifestyle changes. If home treatments do not help the symptoms, procedures can be done toshrink or remove the hemorrhoids. What are the causes? This condition is caused by increased pressure in the anal area. This pressure may result from various things, including: ??? Constipation. ??? Straining to have a bowel movement. ??? Diarrhea. ??? . ??? Obesity. ??? Sitting for long periods of time. ??? Heavy lifting or other activity that causes you to strain. ??? Anal sex. ??? Riding a bike for a long period of time. What are the signs or symptoms? Symptoms of this condition include: ??? Pain. ??? Anal itching or irritation. ??? Rectal bleeding. ??? Leakage of stool (feces). ??? Anal swelling. ??? One or more lumps around the anus. How is this diagnosed? This condition can often be diagnosed through a visual exam. Other exams or tests may also be done,such as: ??? An exam that involves feeling the rectal area with a gloved hand (digital rectal exam). ??? An exam of the anal canal that is done using a small tube (anoscope). ??? A blood test, if you have lost a significant amount of blood. ??? A test to look inside the colon using a flexible tube with a camera on the end (sigmoidoscopy or colonoscopy). How is this treated? This condition can usually be treated at home. However, various procedures may be done if dietary changes, lifestyle changes, and other home treatments do not help your symptoms. These procedures canhelp make the hemorrhoids smaller or remove them completely. Some of these procedures involve surgery, and others do not. Common procedures include: ??? Rubber band ligation. Rubber bands are placed at the base of the hemorrhoids to cut off their blood supply. ??? Sclerotherapy. Medicine is injected into the hemorrhoids to shrink them. ??? Infrared coagulation. A type of light energy is used to get rid of the hemorrhoids. ??? Hemorrhoidectomy surgery. The hemorrhoids are surgically removed, and the veins that supply them are tied off. ??? Stapled hemorrhoidopexy surgery. The surgeon patrick the base of the hemorrhoid to the rectal wall. Follow these instructions at home: Eating and drinking ??? Eat foods that have a lot of fiber in them, such as whole grains, beans, nuts, fruits, and vegetables. ??? Ask your health care provider about taking products that have added fiber (fiber supplements). ??? Reduce the amount of fat in your diet. You can do this by eating low-fat dairy products, eatingless red meat, and avoiding processed foods. ??? Drink enough fluid to keep your urine pale yellow. Managing pain and swelling ??? Take warm sitz baths for 20 minutes, 3???4 times a day to ease pain and discomfort. You may do this in a bathtub or using a portable sitz bath that fits over the toilet. ??? If directed, apply ice to the affected area. Using ice packs between sitz baths may be helpful. ??? Put ice in a plastic bag. ??? Place a towel between your skin and the bag. ??? Leave the ice on for 20 minutes, 2???3 times a day. General instructions ??? Take vzub-mtv-khokalq and prescription medicines only as told by your health care provider. ??? Use medicated creams or suppositories as told. ??? Get regular exercise. Ask your health care provider how much and what kind of exercise is best for you. In general, you should do moderate exercise for at least 30 minutes on most days of the week (150 minutes each week). This can include activities such as walking, biking, or yoga. ??? Go to the bathroom when you have the urge to have a bowel movement. Do not wait. ??? Avoid straining to have bowel movements. ??? Keep the anal area dry and clean. Use wet toilet paper or moist towelettes after a bowel movement. ??? Do not sit on the toilet for long periods of time. This increases blood pooling and pain. ??? Keep all follow-up visits as told by your health care provider. This is important. Contact a health care provider if you have: ??? Increasing pain and swelling that are not controlled by treatment or medicine. ??? Difficulty having a bowel movement, or you are unable to have a bowel movement. ??? Pain or inflammation outside the area of the hemorrhoids. Get help right away if you have: ??? Uncontrolled bleeding from your rectum. Summary ??? Hemorrhoids are swollen veins in and around the rectum or anus. ??? Most hemorrhoids can be managed with home treatments such as diet and lifestyle changes. ??? Taking warm sitz baths can help ease pain and discomfort. ??? In severe cases, procedures or surgery can be done to shrink or remove the hemorrhoids. This information is not intended to replace advice given to you by your health care provider. Make sure you discuss any questions you have with your health care provider. Document Revised: 08/15/2021 Document Reviewed: 08/15/2021 [facility] Patient Education ?? 2022 [employer]. 01/27/2023 11:09:24 Colon Polyps Colon Polyps Colon polyps are tissue growths inside the colon, which is part of the large intestine. They are one of the types of polyps that can grow in the body. A polyp may be a round bump or a mushroom-shapedgrowth. You could have one polyp or more than one. Most colon polyps are noncancerous (benign). However, some colon polyps can become cancerous over time. Finding and removing the polyps early can help prevent this. What are the causes? The exact cause of colon polyps is not known. What increases the risk? The following factors may make you more likely to develop this condition: ??? Having a family history of colorectal cancer or colon polyps. ??? Being older than 45 years of age. ??? Being younger than 45 years of age and having a significant family history of colorectal canceror colon polyps or a genetic condition that puts you at higher risk of getting colon polyps. ??? Having inflammatory bowel disease, such as ulcerative colitis or Crohn's disease. ??? Having certain conditions passed from parent to child (hereditary conditions), such as: ??? Familial adenomatous polyposis (FAP). ??? Baldwin syndrome. ??? Turcot syndrome. ??? Peutz???Jeghers syndrome. ??? MUTYH-associated polyposis (MAP). ??? Being overweight. ??? Certain lifestyle factors. These include smoking cigarettes, drinking too much alcohol, not getting enough exercise, and eating a diet that is high in fat and red meat and low in fiber. ??? Having had childhood cancer that was treated with radiation of the abdomen. What are the signs or symptoms? Many times, there are no symptoms. If you have symptoms, they may include: ??? Blood coming from the rectum during a bowel movement. ??? Blood in the stool (feces). The blood may be bright red or very dark in color. ??? Pain in the abdomen. ??? A change in bowel habits, such as constipation or diarrhea. How is this diagnosed? This condition is diagnosed with a colonoscopy. This is a procedure in which a lighted, flexible scope is inserted into the opening between the buttocks (anus) and then passed into the colon to examine the area. Polyps are sometimes found when a colonoscopy is done as part of routine cancer screening tests. How is this treated? This condition is treated by removing any polyps that are found. Most polyps can be removed during a colonoscopy. Those polyps will then be tested for cancer. Additional treatment may be needed depending on the results of testing. Follow these instructions at home: Eating and drinking ??? Eat foods that are high in fiber, such as fruits, vegetables, and whole grains. ??? Eat foods that are high in calcium and vitamin D, such as milk, cheese, yogurt, eggs, liver, fish, and broccoli. ??? Limit foods that are high in fat, such as fried foods and desserts. ??? Limit the amount of red meat, precooked or cured meat, or other processed meat that you eat, such as hot dogs, sausages, cheatham, or meat loaves. ??? Limit sugary drinks. Lifestyle ??? Maintain a healthy weight, or lose weight if recommended by your health care provider. ??? Exercise every day or as told by your health care provider. ??? Do not use any products that contain nicotine or tobacco, such as cigarettes, e-cigarettes, andchewing tobacco. If you need help quitting, ask your health care provider. ??? Do not drink alcohol if: ??? Your health care provider tells you not to drink. ??? You are , may be , or are planning to become . ??? If you drink alcohol: ??? Limit how much you use to: ??? 0???1 drink a day for women. ??? 0???2 drinks a day for men. ??? Know how much alcohol is in your drink. In the [place] one drink equals one 12 oz bottle of beer (355 mL), one 5 oz glass of wine (148 mL), or one 1?? oz glass of hard liquor (44 mL). General instructions ??? Take itjr-rdp-qktdvzd and prescription medicines only as told by your health care provider. ??? Keep all follow-up visits. This is important. This includes having regularly scheduled colonoscopies. Talk to your health care provider about when you need a colonoscopy. Contact a health care provider if: ??? You have new or worsening bleeding during a bowel movement. ??? You have new or increased blood in your stool. ??? You have a change in bowel habits. ??? You lose weight for no known reason. Summary ??? Colon polyps are tissue growths inside the colon, which is part of the large intestine. They are one type of polyp that can grow in the body. ??? Most colon polyps are noncancerous (benign), but some can become cancerous over time. ??? This condition is diagnosed with a colonoscopy. ??? This condition is treated by removing any polyps that are found. Most polyps can be removed during a colonoscopy. This information is not intended to replace advice given to you by your health care provider. Make sure you discuss any questions you have with your health care provider. Document Revised: 05/24/2020 Document Reviewed: 05/24/2020 [facility] Patient Education ?? 2022 [employer]. 01/27/2023 11:09:23 Colonoscopy, Adult, Care After Colonoscopy, Adult, Care After The following information offers guidance on how to care for yourself after your procedure. Your health care provider may also give you more specific instructions. If you have problems or questions, contact your health care provider. What can I expect after the procedure? After the procedure, it is common to have: ??? A small amount of blood in your stool for 24 hours after the procedure. ??? Some gas. ??? Mild cramping or bloating of your abdomen. Follow these instructions at home: Eating and drinking ??? Drink enough fluid to keep your urine pale yellow. ??? Follow instructions from your health care provider about eating or drinking restrictions. ??? Resume your normal diet as told by your health care provider. Avoid heavy or fried foods that are hard to digest. Activity ??? Rest as told by your health care provider. ??? Avoid sitting for a long time without moving. Get up to take short walks every 1???2 hours. This is important to improve blood flow and breathing. Ask for help if you feel weak or unsteady. ??? Return to your normal activities as told by your health care provider. Ask your health care provider what activities are safe for you. Managing cramping and bloating ??? Try walking around when you have cramps or feel bloated. ??? If directed, apply heat to your abdomen as told by your health care provider. Use the heat source that your health care provider recommends, such as a moist heat pack or a heating pad. ??? Place a towel between your skin and the heat source. ??? Leave the heat on for 20???30 minutes. ??? Remove the heat if your skin turns bright red. This is especially important if you are unable to feel pain, heat, or cold. You have a greater risk of getting burned. General instructions ??? If you were given a sedative during the procedure, it can affect you for several hours. Do not drive or operate machinery until your health care provider says that it is safe. ??? For the first 24 hours after the procedure: ??? Do not sign important documents. ??? Do not drink alcohol. ??? Do your regular daily activities at a slower pace than normal. ??? Eat soft foods that are easy to digest. ??? Take zvhr-xod-vbpubqt and prescription medicines only as told by your health care provider. ??? Keep all follow-up visits. This is important. Contact a health care provider if: ??? You have blood in your stool 2???3 days after the procedure. Get help right away if: ??? You have more than a small spotting of blood in your stool. ??? You have large blood clots in your stool. ??? You have swelling of your abdomen. ??? You have nausea or vomiting. ??? You have a fever. ??? You have increasing pain in your abdomen that is not relieved with medicine. These symptoms may be an emergency. Get help right away. Call 911. ??? Do not wait to see if the symptoms will go away. ??? Do not drive yourself to the hospital. Summary ??? After the procedure, it is common to have a small amount of blood in your stool. You may also have mild cramping and bloating of your abdomen. ??? If you were given a sedative during the procedure, it can affect you for several hours. Do not drive or operate machinery until your health care provider says that it is safe. ??? Get help right away if you have a lot of blood in your stool, nausea or vomiting, a fever, or increased pain in your abdomen. This information is not intended to replace advice given to you by your health care provider. Make sure you discuss any questions you have with your health care provider. Document Revised: 09/26/2021 Document Reviewed: 09/26/2021 [employer] Patient Education ?? 2022 [employer]. Discharge instructions * Tamanna Levine: PERFORM Event Display: Discharge Instructions Authored Date: [id number] PATRIA KIM :[id number] Age:67 years Sex:Male Visit Date:01/27/2023 Primary Care Physician: KEN BIRCH PA-C Hospital Discharge Instructions We would like to thank you for allowing us to assist you with your healthcare needs. The following includes patient education materials and information regarding your injury/illness. Your Next Steps Discharge Orders Discharge Patient Instructions, You may experience some gas cramps and abdominal bloating Discharge Patient Instructions, Cramping and abdominal bloating should subside in 1 hour or so Discharge Patient Instructions, Passing gas rectally and belching is normal Discharge Patient Instructions, A light first meal may feel better in your stomach Discharge Patient Instructions, You may resume your normal activity in 24 hours Discharge Patient Instructions, It is important that a responsible adult drive you home today Discharge Patient Instructions, Do not sign any contracts, make any major decisions, or drive or operate machinery for 24 hours Discharge Patient Instructions, You should not be responsible for the care of others Discharge Patient Instructions, Avoid alcohol, tranquilizers, sleeping pills, or cold medicines for24 hours Discharge Patient Instructions, Call or come to emergency department if having unusual pain or severe abdominal pain Discharge Patient Instructions, Call or come to emergency department if vomiting blood or having black bowel movements, rectal bleeding or passing blood clots Discharge Patient Instructions, Call or come to emergency department for dizziness Discharge Patient Instructions, Call or come to emergency department chest pain, or shortness of breath Discharge Patient Instructions, Call or come to emergency department for fever greater than 100 ??F Discharge Patient Instructions, Call with any additional questions or concerns Scheduled Future Appointments 2022 9:00 AM EST ?? With: Alena Baker APRN Where: [facility] Status: Confirmed Medications What How Much When Instructions Next Dose Unchanged albuterol (albuterol 90 mcg/ inh aerosol inhaler) 1 Puffs Inhale (breathe in) Every 4 hours as needed for as needed for wheezing Unchanged ondansetron (ondansetron 4 mg oral tablet, disintegrating) 1 tab Oral (given by mouth) Every 6 hours as needed for as needed for nausea/vomiting Unchanged triamcinolone topical (triamcinolone 0.1% topical cream) APPLY A SMALL AMOUNT OF CREAM TOPICALLY TO THE AFFECTED AREA(S) TWICE A DAY NEEDED ?? Your Summary Your Care Team Admitting Physician - Fredy Cross MD Attending Physician - Fredy Cross MD Primary Care Physician - KEN BIRCH PA-C Referring Physician - Fredy Cross MD Your Diagnosis Hematochezia Lower abdominal pain Abnormal CT scan, colon Problems Ongoing - Any problem that you are currently receiving treatment for. Abnormal CT scan, colon Acute abdominal pain Anxiety depression Colitis Dysuria Esophageal reflux GERD (gastroesophageal reflux disease) Hematochezia Hypothyroidism Lower abdominal cramping Lower abdominal pain Lupus Lyme disease Nausea and vomiting Noninfectious gastroenteritis Occult blood in stools KELLY - Obstructive sleep apnea Osteoarthritis Plantar fascial fibromatosis Restless legs syndrome Spinal stenosis Tobacco use UI (urinary incontinence) Procedures Performed ???Colonoscopy Biopsy (01/27/2023)???Colonoscopy Discharge Vitals Temperature??(Temporal Artery) 99.0 ??F (37.2 ??C) Heart Rate??(Peripheral) 60 Heart Rate??(Monitored) 66 Respiratory Rate?? 16 Blood Pressure?? 107/75?? Allergies Mold??(Congestion) Pollen??(Congestion) No Known Medication Allergies Education Materials High-Fiber Eating Plan Fiber, also called dietary fiber, is a type of carbohydrate. It is found foods such as fruits, vegetables, whole grains, and beans. A high-fiber diet can have many health benefits. Your health care provider may recommend a high-fiber diet to help: ? Prevent constipation. Fiber can make your bowel movements more regular. ? Lower your cholesterol. ? Relieve the following conditions: ? Inflammation of veins in the anus (hemorrhoids). ? Inflammation of specific areas of the digestive tract (uncomplicated diverticulosis). ? A problem of the large intestine, also called the colon, that sometimes causes pain and diarrhea (irritable bowel syndrome, or IBS). ? Prevent overeating as part of a weight-loss plan. ? Prevent heart disease, type 2 diabetes, and certain cancers. What are tips for following this plan? Reading food labels ? Check the nutrition facts label on food products for the amount of dietary fiber. Choose foods thathave 5 grams of fiber or more per serving. ? The goals for recommended daily fiber intake include: ? Men (age 50 or younger): 34???38 g. ? Men (over age 50): 28???34 g. ? Women (age 50 or younger): 25???28 g. ? Women (over age 50): 22???25 g. Your daily fiber goal is g. Shopping ? Choose whole fruits and vegetables instead of processed forms, such as apple juice or applesauce. ? Choose a wide variety of high-fiber foods such as avocados, lentils, oats, and kidney beans. ? Read the nutrition facts label of the foods you choose. Be aware of foods with added fiber. These foods often have high sugar and sodium amounts per serving. Cooking ? Use whole-grain flour for baking and cooking. ? Cook with brown rice instead of white rice. Meal planning ? Start the day with a breakfast that is high in fiber, such as a cereal that contains 5 g of fiber or more per serving. ? Eat breads and cereals that are made with whole-grain flour instead of refined flour or white flour. ? Eat brown rice, bulgur wheat, or millet instead of white rice. ? Use beans in place of meat in soups, salads, and pasta dishes. ? Be sure that half of the grains you eat each day are whole grains. General information ? You can get the recommended daily intake of dietary fiber by: ? Eating a variety of fruits, vegetables, grains, nuts, and beans. ? Taking a fiber supplement if you are not able to take in enough fiber in your diet. It is better toget fiber through food than from a supplement. ? Gradually increase how much fiber you consume. If you increase your intake of dietary fiber too quickly, you may have bloating, cramping, or gas. ? Drink plenty of water to help you digest fiber. ? Choose high-fiber snacks, such as berries, raw vegetables, nuts, and popcorn. What foods should I eat? Fruits Berries. Pears. Apples. Oranges. Avocado. Prunes and raisins. Dried figs. Vegetables Sweet potatoes. Spinach. Kale. Artichokes. Cabbage. Broccoli. Cauliflower. Green peas. Carrots. Squash. Grains Whole-grain breads. Multigrain cereal. Oats and oatmeal. Brown rice. Barley. Bulgur wheat. Millet. Quinoa. Bran muffins. Popcorn. Wayside wafer crackers. Meats and other proteins [place] beans, kidney beans, and saucedo beans. Soybeans. Split peas. Lentils. Nuts and seeds. Dairy Fiber-fortified yogurt. Beverages Fiber-fortified soy milk. Fiber-fortified orange juice. Other foods Fiber bars. The items listed above may not be a complete list of recommended foods and beverages. Contact a dietitian for more information. What foods should I avoid? Fruits Fruit juice. Cooked, strained fruit. Vegetables Fried potatoes. Canned vegetables. Well-cooked vegetables. Grains White bread. Pasta made with refined flour. White rice. Meats and other proteins Fatty cuts of meat. Fried chicken or fried fish. Dairy Milk. Yogurt. Cream cheese. Sour cream. Fats and oils Whitefish. Beverages Soft drinks. Other foods Cakes and pastries. The items listed above may not be a complete list of foods and beverages to avoid. Talk with your dietitian about what choices are best for you. Summary ? Fiber is a type of carbohydrate. It is found in foods such as fruits, vegetables, whole grains, andbeans. ? A high-fiber diet has many benefits. It can help to prevent constipation, lower blood cholesterol, aid weight loss, and reduce your risk of heart disease, diabetes, and certain cancers. ? Increase your intake of fiber gradually. Increasing fiber too quickly may cause cramping, bloating,and gas. Drink plenty of water while you increase the amount of fiber you consume. ? The best sources of fiber include whole fruits and vegetables, whole grains, nuts, seeds, and beans. This information is not intended to replace advice given to you by your health care provider. Make sure you discuss any questions you have with your health care provider. Document Revised: 06/08/2020 Document Reviewed: 06/08/2020 Else[employer] Patient Education ?? 2022 [employer] Hemorrhoids Hemorrhoids are swollen veins in and around the rectum or anus. There are two types of hemorrhoids: ? Internal hemorrhoids. These occur in the veins that are just inside the rectum. They may poke through to the outside and become irritated and painful. ? External hemorrhoids. These occur in the veins that are outside the anus and can be felt as a painful swelling or hard lump near the anus. Most hemorrhoids do not cause serious problems, and they can be managed with home treatments such as diet and lifestyle changes. If home treatments do not help the symptoms, procedures can be done toshrink or remove the hemorrhoids. What are the causes? This condition is caused by increased pressure in the anal area. This pressure may result from various things, including: ? Constipation. ? Straining to have a bowel movement. ? Diarrhea. ? . ? Obesity. ? Sitting for long periods of time. ? Heavy lifting or other activity that causes you to strain. ? Anal sex. ? Riding a bike for a long period of time. What are the signs or symptoms? Symptoms of this condition include: ? Pain. ? Anal itching or irritation. ? Rectal bleeding. ? Leakage of stool (feces). ? Anal swelling. ? One or more lumps around the anus. How is this diagnosed? This condition can often be diagnosed through a visual exam. Other exams or tests may also be done,such as: ? An exam that involves feeling the rectal area with a gloved hand (digital rectal exam). ? An exam of the anal canal that is done using a small tube (anoscope). ? A blood test, if you have lost a significant amount of blood. ? A test to look inside the colon using a flexible tube with a camera on the end (sigmoidoscopy or colonoscopy). How is this treated? This condition can usually be treated at home. However, various procedures may be done if dietary changes, lifestyle changes, and other home treatments do not help your symptoms. These procedures canhelp make the hemorrhoids smaller or remove them completely. Some of these procedures involve surgery, and others do not. Common procedures include: ? Rubber band ligation. Rubber bands are placed at the base of the hemorrhoids to cut off their bloodsupply. ? Sclerotherapy. Medicine is injected into the hemorrhoids to shrink them. ? Infrared coagulation. A type of light energy is used to get rid of the hemorrhoids. ? Hemorrhoidectomy surgery. The hemorrhoids are surgically removed, and the veins that supply them are tied off. ? Stapled hemorrhoidopexy surgery. The surgeon patrick the base of the hemorrhoid to the rectal wall. Follow these instructions at home: Eating and drinking ? Eat foods that have a lot of fiber in them, such as whole grains, beans, nuts, fruits, and vegetables. ? Ask your health care provider about taking products that have added fiber (fiber supplements). ? Reduce the amount of fat in your diet. You can do this by eating low-fat dairy products, eating less red meat, and avoiding processed foods. ? Drink enough fluid to keep your urine pale yellow. Managing pain and swelling ? Take warm sitz baths for 20 minutes, 3???4 times a day to ease pain and discomfort. You may do thisin a bathtub or using a portable sitz bath that fits over the toilet. ? If directed, apply ice to the affected area. Using ice packs between sitz baths may be helpful. ? Put ice in a plastic bag. ? Place a towel between your skin and the bag. ? Leave the ice on for 20 minutes, 2???3 times a day. General instructions ? Take hfgn-seb-gwowwcz and prescription medicines only as told by your health care provider. ? Use medicated creams or suppositories as told. ? Get regular exercise. Ask your health care provider how much and what kind of exercise is best for you. In general, you should do moderate exercise for at least 30 minutes on most days of the week (150 minutes each week). This can include activities such as walking, biking, or yoga. ? Go to the bathroom when you have the urge to have a bowel movement. Do not wait. ? Avoid straining to have bowel movements. ? Keep the anal area dry and clean. Use wet toilet paper or moist towelettes after a bowel movement. ? Do not sit on the toilet for long periods of time. This increases blood pooling and pain. ? Keep all follow-up visits as told by your health care provider. This is important. Contact a health care provider if you have: ? Increasing pain and swelling that are not controlled by treatment or medicine. ? Difficulty having a bowel movement, or you are unable to have a bowel movement. ? Pain or inflammation outside the area of the hemorrhoids. Get help right away if you have: ? Uncontrolled bleeding from your rectum. Summary ? Hemorrhoids are swollen veins in and around the rectum or anus. ? Most hemorrhoids can be managed with home treatments such as diet and lifestyle changes. ? Taking warm sitz baths can help ease pain and discomfort. ? In severe cases, procedures or surgery can be done to shrink or remove the hemorrhoids. This information is not intended to replace advice given to you by your health care provider. Make sure you discuss any questions you have with your health care provider. Document Revised: 08/15/2021 Document Reviewed: 08/15/2021 [employer] Patient Education ?? 2022 [employer] [employer] Colon Polyps Colon polyps are tissue growths inside the colon, which is part of the large intestine. They are one of the types of polyps that can grow in the body. A polyp may be a round bump or a mushroom-shapedgrowth. You could have one polyp or more than one. Most colon polyps are noncancerous (benign). However, some colon polyps can become cancerous over time. Finding and removing the polyps early can help prevent this. What are the causes? The exact cause of colon polyps is not known. What increases the risk? The following factors may make you more likely to develop this condition: ? Having a family history of colorectal cancer or colon polyps. ? Being older than 45 years of age. ? Being younger than 45 years of age and having a significant family history of colorectal cancer or colon polyps or a genetic condition that puts you at higher risk of getting colon polyps. ? Having inflammatory bowel disease, such as ulcerative colitis or Crohn's disease. ? Having certain conditions passed from parent to child (hereditary conditions), such as: ? Familial adenomatous polyposis (FAP). ? Baldwin syndrome. ? Turcot syndrome. ? Peutz???Jeghers syndrome. ? MUTYH-associated polyposis (MAP). ? Being overweight. ? Certain lifestyle factors. These include smoking cigarettes, drinking too much alcohol, not gettingenough exercise, and eating a diet that is high in fat and red meat and low in fiber. ? Having had childhood cancer that was treated with radiation of the abdomen. What are the signs or symptoms? Many times, there are no symptoms. If you have symptoms, they may include: ? Blood coming from the rectum during a bowel movement. ? Blood in the stool (feces). The blood may be bright red or very dark in color. ? Pain in the abdomen. ? A change in bowel habits, such as constipation or diarrhea. How is this diagnosed? This condition is diagnosed with a colonoscopy. This is a procedure in which a lighted, flexible scope is inserted into the opening between the buttocks (anus) and then passed into the colon to examine the area. Polyps are sometimes found when a colonoscopy is done as part of routine cancer screening tests. How is this treated? This condition is treated by removing any polyps that are found. Most polyps can be removed during a colonoscopy. Those polyps will then be tested for cancer. Additional treatment may be needed depending on the results of testing. Follow these instructions at home: Eating and drinking ? Eat foods that are high in fiber, such as fruits, vegetables, and whole grains. ? Eat foods that are high in calcium and vitamin D, such as milk, cheese, yogurt, eggs, liver, fish, and broccoli. ? Limit foods that are high in fat, such as fried foods and desserts. ? Limit the amount of red meat, precooked or cured meat, or other processed meat that you eat, such as hot dogs, sausages, cheatham, or meat loaves. ? Limit sugary drinks. Lifestyle ? Maintain a healthy weight, or lose weight if recommended by your health care provider. ? Exercise every day or as told by your health care provider. ? Do not use any products that contain nicotine or tobacco, such as cigarettes, e- cigarettes, and chewing tobacco. If you need help quitting, ask your health care provider. ? Do not drink alcohol if: ? Your health care provider tells you not to drink. ? You are , may be , or are planning to become . ? If you drink alcohol: ? Limit how much you use to: ? 0???1 drink a day for women. ? 0???2 drinks a day for men. ? Know how much alcohol is in your drink. In the [place] one drink equals one 12 oz bottle of beer (355mL), one 5 oz glass of wine (148 mL), or one 1?? oz glass of hard liquor (44 mL). General instructions ? Take rxgn-mzq-cmhznzv and prescription medicines only as told by your health care provider. ? Keep all follow-up visits. This is important. This includes having regularly scheduled colonoscopies. Talk to your health care provider about when you need a colonoscopy. Contact a health care provider if: ? You have new or worsening bleeding during a bowel movement. ? You have new or increased blood in your stool. ? You have a change in bowel habits. ? You lose weight for no known reason. Summary ? Colon polyps are tissue growths inside the colon, which is part of the large intestine. They are one type of polyp that can grow in the body. ? Most colon polyps are noncancerous (benign), but some can become cancerous over time. ? This condition is diagnosed with a colonoscopy. ? This condition is treated by removing any polyps that are found. Most polyps can be removed during a colonoscopy. This information is not intended to replace advice given to you by your health care provider. Make sure you discuss any questions you have with your health care provider. Document Revised: 05/24/2020 Document Reviewed: 05/24/2020 [employer] Patient Education ?? 202 [employer] Colonoscopy, Adult, Care After The following information offers guidance on how to care for yourself after your procedure. Your health care provider may also give you more specific instructions. If you have problems or questions, contact your health care provider. What can I expect after the procedure? After the procedure, it is common to have: ? A small amount of blood in your stool for 24 hours after the procedure. ? Some gas. ? Mild cramping or bloating of your abdomen. Follow these instructions at home: Eating and drinking ? Drink enough fluid to keep your urine pale yellow. ? Follow instructions from your health care provider about eating or drinking restrictions. ? Resume your normal diet as told by your health care provider. Avoid heavy or fried foods that are hard to digest. Activity ? Rest as told by your health care provider. ? Avoid sitting for a long time without moving. Get up to take short walks every 1???2 hours. This isimportant to improve blood flow and breathing. Ask for help if you feel weak or unsteady. ? Return to your normal activities as told by your health care provider. Ask your health care provider what activities are safe for you. Managing cramping and bloating ? Try walking around when you have cramps or feel bloated. ? If directed, apply heat to your abdomen as told by your health care provider. Use the heat source that your health care provider recommends, such as a moist heat pack or a heating pad. ? Place a towel between your skin and the heat source. ? Leave the heat on for 20???30 minutes. ? Remove the heat if your skin turns bright red. This is especially important if you are unable to feel pain, heat, or cold. You have a greater risk of getting burned. General instructions ? If you were given a sedative during the procedure, it can affect you for several hours. Do not drive or operate machinery until your health care provider says that it is safe. ? For the first 24 hours after the procedure: ? Do not sign important documents. ? Do not drink alcohol. ? Do your regular daily activities at a slower pace than normal. ? Eat soft foods that are easy to digest. ? Take cggd-smg-mcigfhn and prescription medicines only as told by your health care provider. ? Keep all follow-up visits. This is important. Contact a health care provider if: ? You have blood in your stool 2???3 days after the procedure. Get help right away if: ? You have more than a small spotting of blood in your stool. ? You have large blood clots in your stool. ? You have swelling of your abdomen. ? You have nausea or vomiting. ? You have a fever. ? You have increasing pain in your abdomen that is not relieved with medicine. These symptoms may be an emergency. Get help right away. Call 911. ? Do not wait to see if the symptoms will go away. ? Do not drive yourself to the hospital. Summary ? After the procedure, it is common to have a small amount of blood in your stool. You may also have mild cramping and bloating of your abdomen. ? If you were given a sedative during the procedure, it can affect you for several hours. Do not drive or operate machinery until your health care provider says that it is safe. ? Get help right away if you have a lot of blood in your stool, nausea or vomiting, a fever, or increased pain in your abdomen. This information is not intended to replace advice given to you by your health care provider. Make sure you discuss any questions you have with your health care provider. Document Revised: 09/26/2021 Document Reviewed: 09/26/2021 Else[employer] Patient Education ?? 2022 [employer] [employer] Patient/Tint Layer Signature Patient Name:PATRIA KIM I have received this information and my questions have been answered. Patient/Tint Layer Name: Patient/Tint Layer Signature: Relationship to Patient: Witness Name/Signature: Date: Electronically Signed on: 01/27/2023 12:12 ESTSigned by: History and physical note * Fredy Cross MD: PERFORM Event Display: History and Physical Authored Date: [id number] PATRIA KIM :1955 Age:67 years Sex:Male Visit Date:01/27/2023 Primary Care Physician: KEN BIRCH PA-C Chief Complaint Colonoscopy History of Present Illness 67-year-old male at average risk for colorectal cancer??with??bright red blood per rectum, lower abdominal pain, and CT scan??showing possible??colitis involving the??transverse??and left colon. Physical Exam Vitals & Measurements T:??36.5?C ??(Temporal Artery)?? HR:??65??(Monitored)?? RR:??16?? BP:??124/94?? SpO2:??98%?? Pain Score:??0?? O2 Therapy:??Room air?? Obese white male no acute distress Lungs: Clear to auscultation bilaterally Heart: Regular rhythm S1-S2 Abdomen: Soft nontender Assessment/Plan 1.??Hematochezia??K92.1 Colonoscopy today. 2.??Lower abdominal pain??R10.30 3.??Abnormal CT scan, colon??R93.3 Problem List/Past Medical History Ongoing Abnormal CT scan, colon Acute abdominal pain Anxiety depression Colitis Dysuria Esophageal reflux GERD (gastroesophageal reflux disease) Hematochezia Hypothyroidism Lower abdominal cramping Lower abdominal pain Lupus Lyme disease Nausea and vomiting Noninfectious gastroenteritis Occult blood in stools KELLY - Obstructive sleep apnea Osteoarthritis Plantar fascial fibromatosis Restless legs syndrome Spinal stenosis Tobacco use UI (urinary incontinence) Historical No qualifying data Procedure/Surgical History ???Ankle surgery bone spurs (02/16/2013)???Colonoscopy???Thumb surgery???Vasectomy Medications Inpatient No active inpatient medications Home albuterol 90 mcg/inh aerosol inhaler, 1 puffs, Inhale, every 4 hr, PRN ondansetron 4 mg oral tablet, disintegrating, 4 mg= 1 tab, Oral, every 6 hr, PRN triamcinolone 0.1% topical cream Allergies Mold??(Congestion) Pollen??(Congestion) No Known Medication Allergies Social History Alcohol Current, 1-2 times per [...] Unknown. Cause of : Electronically Signed on 01/27/23 11:19 AM Fredy Cross MD Patient Care team information Care Team Personnel Name: KEN BIRCH PA-C Position: No Access Member Role: Primary Care Physician Address: Address: [address] [address]- Care Team Related Persons Name: POLI KIM
[2023-01-30 11:18] LABS: Free PSA/PSA Ratio 0.14 ratio
== END 2023-01-28 13:37 | disposition home or self-care (01) ==
LOC: NCHCN 13:36
PROVIDERS: PCP Physician Assistant Medical; Visit Provider Physician Assistant Medical
DX: R39.9 Unspecified symptoms and signs involving the genitourinary system (principal)
CPT/HCPCS: 84154

== ENCOUNTER → 2023-07-09 03:10 | Outpatient (CLI) | payer MEDICARE, SELFPAY ==
--- NOTE | 2023-07-09 | DI.RAD_ITS ---
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 TECHNIQUE: 2D digital imaging was performed. Five views were performed. COMPARISON: No exams were available for comparison FINDINGS: BONES: No fracture or destructive lesion. Vertebral bodies are unremarkable. No significant neural foraminal narrowing. DISKS: Mild narrowing the C6-7 disc space. Small endplate osteophytes. The remaining intervertebral disc spaces are maintained. ALIGNMENT: Cervical spinal alignment is within normal limits. The odontoid and atlantoaxial articulat ions are normal. SOFT TISSUE: Normal. The lung apices are clear. IMPRESSION: Degenerative disc changes at C6-7. DATA REPOSITORY: RADIATION DOSE DELIVERED:
== END ==
PROVIDERS: PCP Physician Assistant Medical; Visit Provider Nurse Practitioner Family
DX: M50.123 Cervical disc disorder at C6-C7 level with radiculopathy (principal)
CPT/HCPCS: 72050

== ENCOUNTER 2024-06-28 01:54 | Outpatient (CLI) | payer MEDICARE, SELFPAY ==
--- NOTE | 2024-06-28 | DI.MRI_ITS ---
Exam(s) MR UPPER JOINT LT WO EXAM: MR UPPER JOINT LT WO CLINICAL HISTORY: Pain in lt shoulder, M25.512. TECHNIQUE: Multiplanar multisequence MRI was performed. COMPARISON: No exams were available for comparison FINDINGS: BONES: There is no fracture or contusion pattern. JOINTS: Marked degenerative changes are seen at the acromioclavicular joint. There are marked degene rative changes seen at the glenohumeral joint with loss of the articular cartilage, joint space narro wing and osteophytes present. There is a small joint effusion. TENDONS: Supraspinatus: There is tendinosis of the supraspinatus tendon. There is hyperintense signal seen at the insertion site of the supraspinatus tendon posteriorly suspicious for partial tear. Infraspinatus: There is tendinosis of the infraspinatus tendon. Subscapularis: Tendinosis of the subscapularis tendon is noted. Teres Minor: Unremarkable. Biceps and [place]: There is tendinosis of the biceps tendon. MUSCLES: Unremarkable. GLENOID LABRUM: There is fraying of the superior and posterior labrum which may represent degeneratio n and/or tear. SOFT TISSUES: Unremarkable. LIGAMENTS: Unremarkable. OTHER: There is a small amount of fluid in the subacromial subdeltoid bursa. IMPRESSION: 1. Marked degenerative changes seen at the acromioclavicular and glenohumeral joints and small joint effusion. 2. Small and intrasubstance tear of the supraspinatus tendon at its insertion site. 3. Tendinosis of the rotator cuff tendons. 4. Degeneration and/or tear of the superior and posterior labrum. 5. Small amount of fluid in the subacromial subdeltoid bursa. DATA REPOSITORY:
== END 2024-06-28 02:14 ==
PROVIDERS: PCP Physician Assistant Medical; Visit Provider Physician Assistant Medical
DX: M75.112 Incomplete rotator cuff tear or rupture of left shoulder, not specified as traumatic (principal)
CPT/HCPCS: 73221

== ENCOUNTER 2024-08-04 17:34 | Outpatient (REF) | payer MEDICARE, SELFPAY ==
[2024-08-04 20:47] LABS: Abs Immature Grans 0.02 10^3/uL (0.0-0.06); Absolute Basophil Count 0.06 10^3/uL (0.0-0.2); Absolute Lymphocyte Count 1.66 10^3/uL (1.2-3.4); Absolute Monocyte Count 0.65 10^3/uL (0.1-0.8); Absolute Neutrophil Count 6.51 10^3/uL (1.2-6.7); Basophils % 0.7 %; Eosinophils % 1.1 %; HCT 46.2 % (40.0-50.0); HGB 15.3 g/dL (13.5-17.5); Immature Grans % 0.2 %; Lymphocytes % 18.4 %; MCH 30.1 pg (27.0-33.0); MCHC 33.1 % (32.0-36.0); MCV 91 fL (80-95); Monocytes % 7.2 %; Neutrophils % 72.4 %; Platelet Count 213 10^3/uL (130-400); RBC 5.09 10^6/uL (4.36-5.78); RDW 13.9 % (11.8-14.1); RDW-SD 46.7 fL
[2024-08-04 21:02] LABS: Hemoglobin A1C 5.7 % (<5.7)
[2024-08-04 21:31] LABS: Calculated LDL 157 mg/dL (<100); Cholesterol 224 mg/dL (<200); Folate 14.2 ng/mL (8.6-20.0); HDL Cholesterol 46 mg/dL (>or=40); Magnesium 2.2 mg/dL (1.8-2.4); TSH 2.68 uIU/mL (0.36-3.74); Triglyceride 106 mg/dL (<150); Vitamin B12 630 pg/mL (193-986); Vitamin D 25 Total 27 ng/mL (30-100)
== END 2024-08-04 17:35 | disposition home or self-care (01) ==
LOC: NCHCN 17:34
PROVIDERS: PCP Physician Assistant Medical; Visit Provider Physician Assistant Medical
DX: R20.2 Paresthesia of skin (principal); R53.83 Other fatigue; Z13.220 Encounter for screening for lipoid disorders
CPT/HCPCS: 80061; 82306; 82607; 82746; 83036; 83735; 84443; 85025